=== PATIENT | female | born 1950 | race Caucasian/White ===

== ENCOUNTER 2020-06-30 11:50 | Inpatient (IN) ==
[2020-06-30] MEDS ORDERED: CEFEPIME 2,000 MG/20 ML VIAL IV STA (12:06)
--- NOTE | 2020-06-30 12:13 | Emergency Department Note ---
Impression & Plan Change in mental status, Ascites, Hyperammonemia, Acute liver failure, Acute dehydration, COVID-19 ED Provider Note NAME: HENOK DENNIS AGE: 69 SEX: F : 1950 ARRIVES VIA: Ambulance INFORMANT: [ems, nursing] ED PROVIDER(S): [Nicolas Seaman MD] CHIEF COMPLAINT: Respiratory difficulty HISTORY OF PRESENT ILLNESS: The patient is a 69-year-old female who is reportedly Covid positive as of a few days ago. She is from [facility]. The patient today had a difficult time with her breathing and a change in mental status and appeared yellow in color. She seemed to have a sudden decline and was sent to the hospital via EMS. No further history is obtainable as the patient is currently nonverbal. She is breathing deeply and rapidly. REVIEW OF SYSTEMS: Unobtainable given her mental state. PMHx/PSHx: See Below SOCIAL HISTORY: See Below. PHYSICAL EXAM: GENERAL: Patient is moderate respiratory distress HEENT: No acute trauma, normocephalic atraumatic, mucous membranes moist, no nasal congestion, pupils equal and reactive to light. NECK: No stridor, no adenopathy, no meningismus, trachea is midline. LUNGS: No wheezing or rhonchi, increased respiratory rate. There appears to be some mild to moderate respiratory distress. HEART: Without murmurs gallops or rubs, mildly tachycardic, regular rhythm. ABDOMEN: Soft, nontender, bowel sounds positive, no hernias, no peritonitis. EXTREMITIES: No cyanosis, mild bilateral pedal edema, full range of motion of all the joints without pain or difficulty, no signs for acute trauma. NEUROLOGIC: Moves all extremities, currently nonverbal, does not respond to voice command. Does withdraw and wince to pain. SKIN: No rash, mild jaundice, no diaphoresis. DIFFERENTIAL DIAGNOSIS: Sepsis, UTI, pneumonia, metabolic, electrolyte abnormalities, liver failure, intracranial bleeding, coronavirus, cardiac sources, intracerebral event, toxicologic, neurologic, as well as other pathologies. EMERGENCY DEPARTMENT COURSE/PROCEDURES: ECG: Indication was shortness of breath. The ECG shows a normal sinus rhythm with a rate of 100. There is no ST elevation, there is some diffuse nonspecific ST change. There are no PVCs. The QTc is 466. Continuous Cardiac Monitoring: An order was placed for continuous cardiac monitoring. The monitor shows a rate of 93 with normal sinus rhythm. Critical Care Note: I have personally spent 56 minutes of critical care time in the direct management of this patient. This includes bedside care, interpretation of diagnostic studies, and testing, discussion with consultants, patient, and family members, and other required patient management activities. This 56 minutes is in excess of all separately billable procedures. MEDICAL DECISION MAKING: There is a moderate leukocytosis at 15,000, this could be consistent with infection or possibly, the stress of her presentation. There is no anemia. There is a normal platelet count. INR is elevated at 1.5. There is evidence for some acute kidney injury with a creatinine of 1.24. Lactic acid level is quite elevated at 4.4, consistent with infection and/or dehydration. There is evidence for liver failure. She has some chronic liver enzyme elevations but today, the ammonia level is quite high at 355. Procalcitonin level is slightly elevated. BNP is not elevated. Chest film shows bilateral pulmonary infiltrates versus some CHF. ECG shows a sinus rhythm, no acute ischemia. Cardiac enzyme testing x1 is not consistent with acute cardiac injury. Urinalysis is consistent with possible infection. Brain CT shows no acute bleed or mass-effect. Abdominal CT scan shows significant ascites. On exam, the patient was breathing deeply and rapidly. She appeared to be in some distress. She was nonverbal but seemed to respond to pain. The patient has a positive coronavirus test. Her x-ray is consistent with findings of coronavirus. She also appears to be in acute liver failure. I think the liver failure has caused the sudden confusion and decline. She also appears to be quite dehydrated. The patient was placed on Vapotherm to help her respiratory issue. I did want to avoid intubation as she was not hypoxic. Despite her elevated lactic acid, I only ordered for 1.5 L of IV fluid as excessive fluid amounts are contraindicated in coronavirus infection. Patient was given IV cefepime as empiric antibiotic coverage. She was placed on 2 inches of nitroglycerin paste. I did consult the ICU. They suggested a diagnostic and therapeutic paracentesis. I spoke to radiology and this will be performed at the bedside. Albumin will be given IV before and after the paracentesis. The patient does seem to be somewhat improved with regard to her respiratory status since the Vapotherm application. The patient's ABG does show evidence for a respiratory alkalosis. The PCO2 is 24 and the pH was 7.53. The patient is quite ill. She has Covid. She appears to have a chest film consistent with a Covid pneumonitis. She now is in liver failure with a markedly elevated ammonia level. She is quite dehydrated and has some acute kidney injury. She has ascites and possibly a UTI. The patient will be hospitalized. I did speak with case management and the on- call hospitalist. Of note, the patient presented here as a full code. After the hospitalist talked with the patient's son, she is now a DNR, DNI. Past Med/Surg History Medical History Acute hypoxemic respiratory failure Anxiety Ascites CAD (coronary artery disease) NON-OBSTRUCTIVE COVID-19 Depression Diabetes mellitus, type 2 IDDM GERD (gastroesophageal reflux disease) CONTROLLED Hydronephrosis, right Hyperlipidemia Hypertension Mild aortic stenosis DAMARI 1.62CM2, MG 17MMHG PER 2017 ECHO Obesity Pleural effusion associated with hepatic disorder Urinary incontinence Surgical History Fusion of spine LUMBAR History of cardiac cath 2014= NO STENTS History of cholecystectomy History of colonoscopy History of cystoscopy History of hysterectomy History of total knee replacement RIGHT/LEFT Social History Smoking Status: Unknown if ever smoked Cigarettes Per Day: QUIT 6 YEARS AGO, HX OF SOCIAL USE; Second Hand Exposure: No; Hx Alcohol Use: No Hx Substance Use: No Preferred Language: Irish Communication Ability: unresponsi Javascript Web Developer Required: No Beliefs That Will Affect Care: None Current Living Situation: [facility] Other Information That Helps Us Care for You: No Feels Safe at Home: Yes Assistive Devices: None Allergies Allergies Allergy/AdvReac Type Severity Reaction Status Date / Time cefuroxime Allergy Unknown Verified 06/30/20 18:10 amoxicillin [From Augmentin] AdvReac Vomiting Verified 06/30/20 12:59 clavulanic acid AdvReac Vomiting Verified 06/30/20 12:59 [From Augmentin] Home Meds Home Medications Medication Instructions Recorded Confirmed Jardiance 10 mg PO QAM 01/09/19 06/30/20 omeprazole 20 mg PO DAILYBB 01/09/19 06/30/20 sertraline 100 mg PO QAM 01/09/19 06/30/20 Saccharomyces boulardii [Florastor] 250 mg PO QAM 06/19/20 06/30/20 bupropion HCl 200 mg PO QAM 06/19/20 06/30/20 calcium carbonate-vitamin D3 1 tab PO QAM 06/19/20 06/30/20 ferrous sulfate 325 mg PO BID 06/19/20 06/30/20 lactulose 20 g PO QAM 06/19/20 06/30/20 magnesium oxide [MagOx] 400 mg PO BID 06/19/20 06/30/20 ondansetron HCl [Zofran] 4 mg PO Q6H PRN 06/19/20 06/30/20 pantoprazole [Protonix] 40 mg PO DAILYBB 06/19/20 06/30/20 spironolactone 25 mg PO BID 06/19/20 06/30/20 therapeutic multivitamin 1 tab PO QAM 06/19/20 06/30/20 [Thera-Tabs] Results & Data (ED) Vital Signs Vital Signs - 24 hr 06/30/20 11:39 06/30/20 11:52 06/30/20 11:54 Temperature 36.9 C Temperature Source Oral Pulse Rate 97 H Pulse Rate [Right Apical] Pulse Rate from SpO2 Sensor 94 H Respiratory Rate 30 H 24 Respiratory Effort / Characteristics Grunting Short of Breath Respiratory Depth Normal Respiratory Pattern Rapid/Shallow Tachypnea Blood Pressure 155/82 H 155/82 H Blood Pressure Mean 106 110 Blood Pressure Position Sitting Pulse Oximetry 92 91 Oxygen Delivery Method Nasal Cannula Oxygen Flow Rate 6 Fraction of Inspired Oxygen Sepsis Recent Fever Within 48 Hours No Sepsis New/Unexplained Change in Mental Status Yes Sepsis Action Taken by Nursing Previously Notified 06/30/20 12:00 06/30/20 12:01 06/30/20 12:11 Temperature Temperature Source Pulse Rate 93 H 92 H 98 H Pulse Rate [Right Apical] Pulse Rate from SpO2 Sensor 93 H 97 H Respiratory Rate 24 26 H 30 H Respiratory Effort / Characteristics Respiratory Depth Respiratory Pattern Blood Pressure 145/85 H Blood Pressure Mean 104 Blood Pressure Position Pulse Oximetry 92 92 92 Oxygen Delivery Method Nasal Cannula Oxygen Flow Rate 6 Fraction of Inspired Oxygen Sepsis Recent Fever Within 48 Hours Sepsis New/Unexplained Change in Mental Status Sepsis Action Taken by Nursing 06/30/20 12:15 06/30/20 12:16 06/30/20 12:27 Temperature Temperature Source Pulse Rate 100 H 94 H Pulse Rate [Right Apical] Pulse Rate from SpO2 Sensor 100 H 94 H Respiratory Rate 25 H 24 Respiratory Effort / Characteristics Respiratory Depth Respiratory Pattern Blood Pressure 141/85 H Blood Pressure Mean 99 Blood Pressure Position Pulse Oximetry 91 91 97 Oxygen Delivery Method High Flow Nasal Cannula Oxygen Flow Rate 35 Fraction of Inspired Oxygen 70 Sepsis Recent Fever Within 48 Hours Sepsis New/Unexplained Change in Mental Status Sepsis Action Taken by Nursing 06/30/20 12:28 06/30/20 12:30 06/30/20 12:31 Temperature Temperature Source Pulse Rate 101 H 100 H Pulse Rate [Right Apical] Pulse Rate from SpO2 Sensor 101 H 101 H Respiratory Rate 32 H 25 H 25 H Respiratory Effort / Characteristics Labored Short of Breath Respiratory Depth Respiratory Pattern Blood Pressure 140/84 Blood Pressure Mean 99 Blood Pressure Position Pulse Oximetry 94 95 Oxygen Delivery Method High Flow Nasal Cannula Oxygen Flow Rate 35 Fraction of Inspired Oxygen Sepsis Recent Fever Within 48 Hours Sepsis New/Unexplained Change in Mental Status Sepsis Action Taken by Nursing 06/30/20 12:45 06/30/20 12:46 06/30/20 12:51 Temperature Temperature Source Pulse Rate 94 H 104 H Pulse Rate [Right Apical] 112 H Pulse Rate from SpO2 Sensor 94 H 103 H Respiratory Rate 27 H 24 28 H Respiratory Effort / Characteristics Accessory Muscle Use Short of Breath Respiratory Depth Respiratory Pattern Blood Pressure 147/55 H Blood Pressure Mean 94 Blood Pressure Position Pulse Oximetry 95 95 96 Oxygen Delivery Method High Flow Nasal Cannula Oxygen Flow Rate 35 Fraction of Inspired Oxygen 70 Sepsis Recent Fever Within 48 Hours Sepsis New/Unexplained Change in Mental Status Sepsis Action Taken by Nursing 06/30/20 13:30 06/30/20 13:31 06/30/20 13:45 Temperature Temperature Source Pulse Rate 96 H 96 H 93 H Pulse Rate [Right Apical] Pulse Rate from SpO2 Sensor 96 H 96 H 93 H Respiratory Rate 25 H 24 24 Respiratory Effort / Characteristics Respiratory Depth Respiratory Pattern Blood Pressure 149/72 H 133/90 Blood Pressure Mean 108 97 Blood Pressure Position Pulse Oximetry 96 96 96 Oxygen Delivery Method High Flow Nasal Cannula Oxygen Flow Rate 35 Fraction of Inspired Oxygen 70 Sepsis Recent Fever Within 48 Hours Sepsis New/Unexplained Change in Mental Status Sepsis Action Taken by Nursing 06/30/20 13:46 06/30/20 14:00 06/30/20 14:01 Temperature Temperature Source Pulse Rate 93 H 95 H 95 H Pulse Rate [Right Apical] Pulse Rate from SpO2 Sensor 93 H 95 H 95 H Respiratory Rate 25 H 25 H 24 Respiratory Effort / Characteristics Respiratory Depth Respiratory Pattern Blood Pressure 128/93 Blood Pressure Mean 100 Blood Pressure Position Pulse Oximetry 95 96 95 Oxygen Delivery Method Oxygen Flow Rate Fraction of Inspired Oxygen Sepsis Recent Fever Within 48 Hours Sepsis New/Unexplained Change in Mental Status Sepsis Action Taken by Nursing 06/30/20 14:15 Temperature Temperature Source Pulse Rate 93 H Pulse Rate [Right Apical] Pulse Rate from SpO2 Sensor 93 H Respiratory Rate 25 H Respiratory Effort / Characteristics Respiratory Depth Respiratory Pattern Blood Pressure 118/85 Blood Pressure Mean 99 Blood Pressure Position Pulse Oximetry 95 Oxygen Delivery Method Oxygen Flow Rate Fraction of Inspired Oxygen Sepsis Recent Fever Within 48 Hours Sepsis New/Unexplained Change in Mental Status Sepsis Action Taken by [facility] Medications Current Medication List: was personally reviewed by me Laboratory Data Attestation: I reviewed the patient's lab results. Result diagrams: 07/01/20 02:45 07/01/20 02:45 Lab Results 06/30/20 06/30/20 06/30/20 Range/Units 12:18 12:18 12:18 WBC 15.35 H (4.8-10.8) K/uL RBC 4.35 (4.2-5.4) M/uL Hgb 13.7 (12.0-16.0) g/dL Hct 41.9 (37-47) % MCV 96.3 (80-100) fL MCH 31.5 (25-34) pg MCHC 32.7 (32-36) g/dL RDW Std Deviation 80.3 H (36.4-46.3) fL RDW Coeff of Hilaria 22.8 H (11.5-14.5) % Plt Count 170 (130-400) K/uL MPV 9.4 (7.4-10.4) fL Immature Gran % (Auto) 0.5 % Neut % (Auto) 86.3 % Lymph % (Auto) 4.3 % [place] % (Auto) 8.8 % Eos % (Auto) 0.0 % Baso % (Auto) 0.1 % Neut # (Auto) 13.24 H (1.4-6.5) K/uL Lymph # (Auto) 0.66 L (1.2-3.4) K/uL [place] # (Auto) 1.35 H (0.11-0.59) K/uL Eos # (Auto) 0.00 (0-0.5) K/uL Baso # (Auto) 0.02 (0-0.2) K/uL Immature Gran # (Auto) 0.08 H (0.00-0.02) K/uL Anisocytosis Present Echinocytes 1+ PT 15.9 H (9.0-12.0) Seconds INR 1.5 H (0.9-1.1) APTT 36.2 H (21.0-31.0) Seconds PTT Ratio 1.3 Specimen Type POC pH (7.35-7.45) POC pCO2 (35-46) mmHg POC pO2 (80-95) mmHg POC HCO3 (19-24) lacey/L POC Total CO2 (24-31) mmol/L POC Base Excess (-9-1.8) lacey/L POC ABG O2 Sat (90-95) % Sodium 134 L (136-145) mmol/L Potassium 5.0 (3.5-5.1) mmol/L Chloride 104 (98-107) mmol/L Carbon Dioxide 20 L (21-32) mmol/L Anion Gap 10.0 (3-11) BUN 42 H (7-18) mg/dl Creatinine 1.24 H (0.6-1.2) mg/dl Est Cr Clr Drug Dosing 43.7 ml/min Est GFR ( Amer) 51.3 Est GFR (Non-Af Amer) 44.3 BUN/Creatinine Ratio 33.8 H (10-20) Glucose 88 (70-99) mg/dl Lactate (0.4-2.0) mmol/L Calcium 9.1 (8.5-10.1) mg/dl Magnesium 2.5 H (1.8-2.4) mg/dl Ferritin (8-388) ng/ml Total Bilirubin 4.4 H (0.2-1) mg/dl AST 73 H (15-37) U/L ALT 38 (12-78) U/L Alkaline Phosphatase 260 H (45-117) U/L Ammonia (11-32) umol/L Troponin I < 0.015 (0-0.045) ng/ml NT-Pro-B Natriuret Pep (0-900) pg/ml Total Protein 6.7 (6.4-8.2) gm/dl Albumin 1.8 L (3.4-5.0) gm/dl Globulin 4.9 H (2.5-4.0) gm/dl Albumin/Globulin Ratio 0.4 L (0.9-2) Procalcitonin (0-0.5) ng/ml Specimen Hemolysis Cancelled Urine Color Urine Appearance (Clear) Urine pH (4.5-7.5) Ur Specific [place] (1.000-1.030) Urine Protein (Negative) Urine Glucose (UA) (Negative) Urine Ketones (Negative) Urine Blood (Negative) Urine Nitrite (Negative) Urine Bilirubin (Negative) Urine Urobilinogen (Negative) Ur Leukocyte Esterase (Negative) Urine RBC (0-4) /hpf Urine WBC (0-5) /hpf Ur Epithelial Cells (0-5) /lpf Urine Bacteria (Negative) Hyaline Casts (0-5) /lpf Urine Mucus (None Prsent) 06/30/20 06/30/20 06/30/20 Range/Units 12:18 12:18 12:18 WBC (4.8-10.8) K/uL RBC (4.2-5.4) M/uL Hgb (12.0-16.0) g/dL Hct (37-47) % MCV (80-100) fL MCH (25-34) pg MCHC (32-36) g/dL RDW Std Deviation (36.4-46.3) fL RDW Coeff of Hilaria (11.5-14.5) % Plt Count (130-400) K/uL MPV (7.4-10.4) fL Immature Gran % (Auto) % Neut % (Auto) % Lymph % (Auto) % [place] % (Auto) % Eos % (Auto) % Baso % (Auto) % Neut # (Auto) (1.4-6.5) K/uL Lymph # (Auto) (1.2-3.4) K/uL [place] # (Auto) (0.11-0.59) K/uL Eos # (Auto) (0-0.5) K/uL Baso # (Auto) (0-0.2) K/uL Immature Gran # (Auto) (0.00-0.02) K/uL Anisocytosis Echinocytes PT (9.0-12.0) Seconds INR (0.9-1.1) APTT (21.0-31.0) Seconds PTT Ratio Specimen Type POC pH (7.35-7.45) POC pCO2 (35-46) mmHg POC pO2 (80-95) mmHg POC HCO3 (19-24) lacey/L POC Total CO2 (24-31) mmol/L POC Base Excess (-9-1.8) lacey/L POC ABG O2 Sat (90-95) % Sodium (136-145) mmol/L Potassium (3.5-5.1) mmol/L Chloride (98-107) mmol/L Carbon Dioxide (21-32) mmol/L Anion Gap (3-11) BUN (7-18) mg/dl Creatinine (0.6-1.2) mg/dl Est Cr Clr Drug Dosing ml/min Est GFR ( Amer) Est GFR (Non-Af Amer) BUN/Creatinine Ratio (10-20) Glucose (70-99) mg/dl Lactate 4.4 H* (0.4-2.0) mmol/L Calcium (8.5-10.1) mg/dl Magnesium (1.8-2.4) mg/dl Ferritin (8-388) ng/ml Total Bilirubin (0.2-1) mg/dl AST (15-37) U/L ALT (12-78) U/L Alkaline Phosphatase (45-117) U/L Ammonia 355.1 H (11-32) umol/L Troponin I (0-0.045) ng/ml NT-Pro-B Natriuret Pep (0-900) pg/ml Total Protein (6.4-8.2) gm/dl Albumin (3.4-5.0) gm/dl Globulin (2.5-4.0) gm/dl Albumin/Globulin Ratio (0.9-2) Procalcitonin 0.95 H (0-0.5) ng/ml Specimen Hemolysis Urine Color Urine Appearance (Clear) Urine pH (4.5-7.5) Ur Specific [place] (1.000-1.030) Urine Protein (Negative) Urine Glucose (UA) (Negative) Urine Ketones (Negative) Urine Blood (Negative) Urine Nitrite (Negative) Urine Bilirubin (Negative) Urine Urobilinogen (Negative) Ur Leukocyte Esterase (Negative) Urine RBC (0-4) /hpf Urine WBC (0-5) /hpf Ur Epithelial Cells (0-5) /lpf Urine Bacteria (Negative) Hyaline Casts (0-5) /lpf Urine Mucus (None Prsent) 06/30/20 06/30/20 06/30/20 Range/Units 12:18 12:18 13:30 WBC (4.8-10.8) K/uL RBC (4.2-5.4) M/uL Hgb (12.0-16.0) g/dL Hct (37-47) % MCV (80-100) fL MCH (25-34) pg MCHC (32-36) g/dL RDW Std Deviation (36.4-46.3) fL RDW Coeff of Hilaria (11.5-14.5) % Plt Count (130-400) K/uL MPV (7.4-10.4) fL Immature Gran % (Auto) % Neut % (Auto) % Lymph % (Auto) % [place] % (Auto) % Eos % (Auto) % Baso % (Auto) % Neut # (Auto) (1.4-6.5) K/uL Lymph # (Auto) (1.2-3.4) K/uL [place] # (Auto) (0.11-0.59) K/uL Eos # (Auto) (0-0.5) K/uL Baso # (Auto) (0-0.2) K/uL Immature Gran # (Auto) (0.00-0.02) K/uL Anisocytosis Echinocytes PT (9.0-12.0) Seconds INR (0.9-1.1) APTT (21.0-31.0) Seconds PTT Ratio Specimen Type POC pH (7.35-7.45) POC pCO2 (35-46) mmHg POC pO2 (80-95) mmHg POC HCO3 (19-24) lacey/L POC Total CO2 (24-31) mmol/L POC Base Excess (-9-1.8) lacey/L POC ABG O2 Sat (90-95) % Sodium (136-145) mmol/L Potassium (3.5-5.1) mmol/L Chloride (98-107) mmol/L Carbon Dioxide (21-32) mmol/L Anion Gap (3-11) BUN (7-18) mg/dl Creatinine (0.6-1.2) mg/dl Est Cr Clr Drug Dosing ml/min Est GFR ( Amer) Est GFR (Non-Af Amer) BUN/Creatinine Ratio (10-20) Glucose (70-99) mg/dl Lactate (0.4-2.0) mmol/L Calcium (8.5-10.1) mg/dl Magnesium (1.8-2.4) mg/dl Ferritin 289.7 (8-388) ng/ml Total Bilirubin (0.2-1) mg/dl AST (15-37) U/L ALT (12-78) U/L Alkaline Phosphatase (45-117) U/L Ammonia (11-32) umol/L Troponin I (0-0.045) ng/ml NT-Pro-B Natriuret Pep 736 (0-900) pg/ml Total Protein (6.4-8.2) gm/dl Albumin (3.4-5.0) gm/dl Globulin (2.5-4.0) gm/dl Albumin/Globulin Ratio (0.9-2) Procalcitonin (0-0.5) ng/ml Specimen Hemolysis Urine Color [place] Urine Appearance Slightly Cloudy (Clear) Urine pH 5.5 (4.5-7.5) Ur Specific [place] 1.025 (1.000-1.030) Urine Protein 2+ H (Negative) Urine Glucose (UA) Trace H (Negative) Urine Ketones 1+ H (Negative) Urine Blood 3+ H (Negative) Urine Nitrite Positive A (Negative) Urine Bilirubin Negative (Negative) Urine Urobilinogen Positive H (Negative) Ur Leukocyte Esterase 2+ H (Negative) Urine RBC 10-30 H (0-4) /hpf Urine WBC >30 H (0-5) /hpf Ur Epithelial Cells >30 H (0-5) /lpf Urine Bacteria 2+ H (Negative) Hyaline Casts 0-5 (0-5) /lpf Urine Mucus Present A (None Prsent) 06/30/20 Range/Units 13:57 WBC (4.8-10.8) K/uL RBC (4.2-5.4) M/uL Hgb (12.0-16.0) g/dL Hct (37-47) % MCV (80-100) fL MCH (25-34) pg MCHC (32-36) g/dL RDW Std Deviation (36.4-46.3) fL RDW Coeff of Hilaria (11.5-14.5) % Plt Count (130-400) K/uL MPV (7.4-10.4) fL Immature Gran % (Auto) % Neut % (Auto) % Lymph % (Auto) % [place] % (Auto) % Eos % (Auto) % Baso % (Auto) % Neut # (Auto) (1.4-6.5) K/uL Lymph # (Auto) (1.2-3.4) K/uL [place] # (Auto) (0.11-0.59) K/uL Eos # (Auto) (0-0.5) K/uL Baso # (Auto) (0-0.2) K/uL Immature Gran # (Auto) (0.00-0.02) K/uL Anisocytosis Echinocytes PT (9.0-12.0) Seconds INR (0.9-1.1) APTT (21.0-31.0) Seconds PTT Ratio Specimen Type Arterial POC pH 7.53 H* (7.35-7.45) POC pCO2 24 L (35-46) mmHg POC pO2 86 (80-95) mmHg POC HCO3 20 (19-24) lacey/L POC Total CO2 21 L (24-31) mmol/L POC Base Excess -2.0 (-9-1.8) lacey/L POC ABG O2 Sat 98.0 H (90-95) % Sodium (136-145) mmol/L Potassium (3.5-5.1) mmol/L Chloride (98-107) mmol/L Carbon Dioxide (21-32) mmol/L Anion Gap (3-11) BUN (7-18) mg/dl Creatinine (0.6-1.2) mg/dl Est Cr Clr Drug Dosing ml/min Est GFR ( Amer) Est GFR (Non-Af Amer) BUN/Creatinine Ratio (10-20) Glucose (70-99) mg/dl Lactate (0.4-2.0) mmol/L Calcium (8.5-10.1) mg/dl Magnesium (1.8-2.4) mg/dl Ferritin (8-388) ng/ml Total Bilirubin (0.2-1) mg/dl AST (15-37) U/L ALT (12-78) U/L Alkaline Phosphatase (45-117) U/L Ammonia (11-32) umol/L Troponin I (0-0.045) ng/ml NT-Pro-B Natriuret Pep (0-900) pg/ml Total Protein (6.4-8.2) gm/dl Albumin (3.4-5.0) gm/dl Globulin (2.5-4.0) gm/dl Albumin/Globulin Ratio (0.9-2) Procalcitonin (0-0.5) ng/ml Specimen Hemolysis Urine Color Urine Appearance (Clear) Urine pH (4.5-7.5) Ur Specific [place] (1.000-1.030) Urine Protein (Negative) Urine Glucose (UA) (Negative) Urine Ketones (Negative) Urine Blood (Negative) Urine Nitrite (Negative) Urine Bilirubin (Negative) Urine Urobilinogen (Negative) Ur Leukocyte Esterase (Negative) Urine RBC (0-4) /hpf Urine WBC (0-5) /hpf Ur Epithelial Cells (0-5) /lpf Urine Bacteria (Negative) Hyaline Casts (0-5) /lpf Urine Mucus (None Prsent) Administered Medications Lactulose 200 gm/ Sterile Water 700 ml/ BARCODE IDENTIFIER 1 ea 0 gm OH Q8H NICOL Stop: 07/30/20 15:59 Last Admin: 07/01/20 01:56 Dose: 200 gm Documented by: [id number] Admin: 06/30/20 18:48 Dose: 200 gm Documented by: [id number] Dextrose (Dextrose 50% 50 Ml Syringe) 25 - 50 ml IV UD PRN; Protocol PRN Reason: Hypoglycemia Protocol Stop: 07/30/20 14:38 Last Admin: 07/01/20 02:33 Dose: 25 ml Documented by: [id number] Metronidazole (Flagyl) 500 mg in 100 mls @ 100 mls/hr IV Q12H NICOL; Protocol Stop: 07/10/20 15:59 Last Infusion: 07/01/20 05:11 Dose: 0 mls/hr Documented by: [id number] Admin: 07/01/20 03:51 Dose: 100 mls/hr Documented by: [id number] Infusion: 06/30/20 18:07 Dose: 0 mls/hr Documented by: [id number] Admin: 06/30/20 16:15 Dose: 100 mls/hr Documented by: [id number] Thiamine HCl 100 mg/ Syringe 10 mls @ 2 mls/min IV Q24H NICOL Stop: 07/30/20 19:59 Last Admin: 06/30/20 21:10 Dose: 2 mls/min Documented by: [id number] Pantoprazole Sodium 40 mg/ (Syringe) 10 mls @ 5 mls/min IV BID@0800,2000 NICOL Stop: 07/30/20 19:59 Last Admin: 06/30/20 21:11 Dose: 5 mls/min Documented by: [id number] Dexamethasone Sodium Phosphate (6 mg/ Syringe) 1.5 mls @ 1 mls/min IV Q24H NICOL Stop: 07/30/20 17:59 Last Admin: 06/30/20 22:28 Dose: 1 mls/min Documented by: [id number] Octreotide Acetate 500 mcg/ (Sodium Chloride) 105 mls @ 10.5 mls/hr IV .Q10H NICOL Stop: 07/30/20 18:44 Last Admin: 07/01/20 03:50 Dose: 50 mcg/hr, 10.5 mls/hr Documented by: [id number] Infusion: 07/01/20 03:50 Dose: 50 mcg/hr, 10.5 mls/hr Documented by: [id number] Admin: 06/30/20 19:33 Dose: 50 mcg/hr, 10.5 mls/hr Documented by: [id number] Dextrose (D5w) 1,000 mls @ 80 mls/hr IV .[id number] NICOL Stop: 07/30/20 18:44 Last Admin: 06/30/20 19:34 Dose: 80 mls/hr Documented by: [id number] Norepinephrine Bitartrate 8 mg (/ Dextrose) 508 mls @ 14.135 mls/hr IV .Q24H NICOL; Protocol Stop: 07/31/20 05:44 Last Admin: 07/01/20 06:39 Dose: 0.05 mcg/kg/min, 14.1 mls/hr Documented by: [id number] Cosigned by: [id number] Insulin Aspart (Insulin Aspart 100 Units/Ml 3 Ml Pen) 0 units SC Q6 NICOL Stop: 07/30/20 17:59 Last Admin: 07/01/20 01:15 Dose: Not Given Documented by: [id number] Cosigned by: [id number] Admin: 06/30/20 18:00 Dose: Not Given Documented by: [id number] Cosigned by: [id number] Discontinued Medications Enoxaparin Sodium (Enoxaparin Inj 40 Mg/0.4 Ml Syr) 40 mg SQ Q24H NICOL Stop: 07/30/20 17:59 Last Admin: 06/30/20 21:10 Dose: Not Given Documented by: [id number] Cefepime HCl (Maxipime) 2,000 mg in 20 mls @ 5 mls/min IV NOW STA; Protocol Stop: 06/30/20 12:09 Last Admin: 06/30/20 12:40 Dose: 5 mls/min Documented by: [id number] Sodium Chloride (Nss 1000ml) 500 mls @ 999 mls/hr IV .Q31M ONE Stop: 06/30/20 12:47 Last Infusion: 06/30/20 13:12 Dose: 0 mls/hr Documented by: [id number] Admin: 06/30/20 12:40 Dose: 999 mls/hr Documented by: [id number] Sodium Chloride (Nss 1000ml) 1,000 mls @ 999 mls/hr IV .Q1H1M ONE Stop: 06/30/20 14:01 Last Infusion: 06/30/20 14:50 Dose: 0 mls/hr Documented by: [id number] Admin: 06/30/20 13:15 Dose: 999 mls/hr Documented by: [id number] Albumin Human (Albumin 25%) 50 mls @ 50 mls/hr IV Q1H [facility]IC[facility] Stop: 06/30/20 17:44 Last Infusion: 07/01/20 00:49 Dose: 0 mls/hr Documented by: [id number] Admin: 06/30/20 18:43 Dose: 50 mls/hr Documented by: [id number] Infusion: 06/30/20 18:07 Dose: 0 mls/hr Documented by: [id number] Admin: 06/30/20 15:49 Dose: 50 mls/hr Documented by: [id number] Infusion: 06/30/20 15:49 Dose: 50 mls/hr Documented by: [id number] Admin: 06/30/20 15:35 Dose: 50 mls/hr Documented by: [id number] Infusion: 06/30/20 15:35 Dose: 50 mls/hr Documented by: [id number] Admin: 06/30/20 14:35 Dose: 50 mls/hr Documented by: [id number] Vancomycin HCl 1,500 mg/ (Sodium Chloride) 530 mls @ 200 mls/hr IV TODAY@1530 NICOL Stop: 06/30/20 18:08 Last Infusion: 07/01/20 00:49 Dose: 0 mls/hr Documented by: [id number] Admin: 06/30/20 18:07 Dose: 200 mls/hr Documented by: [id number] Albumin Human (Albumin 25%) 50 mls @ 50 mls/hr IV Q1H [facility] Stop: 06/30/20 23:44 Last Infusion: 07/01/20 02:11 Dose: 0 mls/hr Documented by: [id number] Admin: 07/01/20 01:15 Dose: 50 mls/hr Documented by: [id number] Infusion: 07/01/20 01:14 Dose: 0 mls/hr Documented by: [id number] Admin: 07/01/20 00:20 Dose: 50 mls/hr Documented by: [id number] Infusion: 07/01/20 00:20 Dose: 0 mls/hr Documented by: [id number] Admin: 06/30/20 22:30 Dose: 50 mls/hr Documented by: [id number] Infusion: 06/30/20 22:30 Dose: 50 mls/hr Documented by: [id number] Admin: 06/30/20 21:32 Dose: 50 mls/hr Documented by: [id number] Infusion: 06/30/20 21:32 Dose: 50 mls/hr Documented by: [id number] Admin: 06/30/20 20:36 Dose: 50 mls/hr Documented by: [id number] Infusion: 06/30/20 20:36 Dose: 0 mls/hr Documented by: [id number] Admin: 06/30/20 19:34 Dose: 50 mls/hr Documented by: [id number] Nitroglycerin (Nitroglycerin 2% Ointment 30gm Tube) Confirm Administered Dose 18 inch .ROUTE .[facility] Stop: 06/30/20 12:35 Last Admin: 06/30/20 13:02 Dose: Not Given Documented by: [id number] Nitroglycerin (Nitroglycerin 2% Ointment 30gm Tube) 2 inch EXT NOW STA Stop: 06/30/20 12:54 Last Admin: 06/30/20 12:55 Dose: 2 inch Documented by: [id number] Imaging Data Radiologist's Impression: XR chest 1V portable CLINICAL HISTORY: SEPSIS COMPARISON STUDY: 01/15/2019 FINDINGS: The heart is normal in size. There is aortic tortuosity/ectasia. Since the prior study, the patient developed extensive bilateral interstitial pulmonary opacities. This could represent a bilateral interstitial infectious/inflammatory process, or pulmonary edema. There are no significant pleural effusions. There is no pneumothorax.[ IMPRESSION: Interval development of extensive bilateral interstitial pulmonary opacities, pulmonary edema versus an interstitial infectious/inflammatory process. Clinical and radiographic follow-up recommended. CT SCAN OF THE ABDOMEN AND PELVIS WITHOUT CONTRAST CLINICAL HISTORY: liver failure COMPARISON STUDY: 01/02/2018 TECHNIQUE: CT scan of the abdomen and pelvis was performed from the lung bases to the proximal femurs. Images are reviewed in the axial, sagittal, and coronal planes. IV contrast was not administered for this examination. A dose lowering technique was utilized adhering to the principles of ALARA. CT DOSE: 1230.77 mGycm FINDINGS: Lower chest: There is a moderate left pleural effusion. There are diffuse bilateral interstitial pulmonary opacities. There is increased soft tissue at the level the right hilum and adenopathy cannot be excluded. There are old right-sided rib fractures. Liver: The liver has a cirrhotic morphology. No focal masses are visualized in this noncontrast study Gallbladder: Surgically absent Spleen: Normal in size and attenuation. Pancreas: Unremarkable. Adrenal glands: There is low-density nodular thickening of the left adrenal gland. Kidneys: There is mild fullness the right renal collecting system. No renal, ure teral, or bladder calculi are visualized. Bowel: There are no transition zones to indicate bowel obstruction. There is colonic diverticulosis. No acute peridiverticular inflammatory changes are visua lized. There is diffuse colonic wall thickening, finding which may be secondary to hepatocellular disease. There is mild gastric wall thickening Peritoneum: There is a large volume of ascites. There is no free intraperitoneal air. Vasculature: The abdominal aorta is normal in course and caliber. Adenopathy: None. Pelvic viscera: The uterus appears surgically absent. There is an indwelling Enrique catheter. Skeletal structures: There is an old internally fixated intertrochanteric left hip fracture. There is an old L1 compression fracture status post vertebroplasty. There is evidence for anasarca. IMPRESSION: 1. Cirrhotic morphology of the liver. 2. Large volume of ascites 3. No evidence of bowel obstruction. No evidence of free air 4. Diffuse colonic wall thickening possibly secondary to hepatocellular disease 5. Diffuse bilateral interstitial pulmonary opacities 6. Moderate left pleural effusion 7. Right hilar prominence. Adenopathy cannot be excluded. CT head/brain wo con CLINICAL HISTORY: confusion COMPARISON STUDY: No previous studies for comparison. TECHNIQUE: Axial CT of the brain is performed from the vertex to the skull base. IV contrast was not administered for this examination. A dose lowering technique was utilized adhering to the principles of ALARA. CT DOSE: 729.78 mGycm FINDINGS: No intra or extra-axial mass lesions are visualized. There is no CT evidence of acute cortical infarction. There is no evidence of midline shift. There is no acute hemorrhage. No calvarial fractures are visualized. There are patchy white matter hypodensities likely on a small vessel basis. There is no evidence of pathologic ventricular dilatation. There is no evidence of acute sinusitis IMPRESSION: 1. No evidence of acute hemorrhage 2. Scattered white matter hypodensities, a finding which while nonspecific is statistically secondary to small vessel ischemic disease. Discharge Plan Visit Data Chief Complaint: Unresponsive Stated Complaint: COVID+ Semi-responsive ED Provider: Nicolas Seaman Discharge Problem: Change in mental status, Ascites, Hyperammonemia, Acute liver failure, Acute dehydration, COVID-19 Patient Disposition: Admitted As Inpatient Condition: Serious Discharge Instructions Interventions: ED Discharge Assessment Last Done: 06/30/20 16:02 Discharge Problem: Change in mental status Qualifiers: Altered mental status type: stupor Qualified Code(s): R40.1 - Stupor Ascites Qualifiers: Ascites type: other type Qualified Code(s): R18.8 - Other ascites Acute liver failure Qualifiers: Hepatic coma status: with hepatic coma Qualified Code(s): K72.01 - Acute and subacute hepatic failure with coma
[2020-06-30] MEDS ORDERED: SODIUM CHLORIDE 0.9% 1000ML 500 ML IV ONE (12:17)
[2020-06-30 12:30] LABS: Basophils # (auto) 0.02 K/uL (0-0.2); Basophils % (auto) 0.1 %; Hematocrit (blood only) 41.9 % (37-47); Hemoglobin 13.7 g/dL (12.0-16.0); Immature Granulocytes # (auto) 0.08 K/uL (0.00-0.02); Immature Granulocytes % (auto) 0.5 %; Lymphocytes # (auto) 0.66 K/uL (1.2-3.4); Lymphocytes % (auto) 4.3 %; Mean Corpuscular Hemoglobin 31.5 pg (25-34); Mean Corpuscular Hgb Conc 32.7 g/dL (32-36); Mean Corpuscular Volume 96.3 fL (80-100); Mean Platelet Volume 9.4 fL (7.4-10.4); Monocytes # (auto) 1.35 K/uL (0.11-0.59); Monocytes % (auto) 8.8 %; Neutrophils # (auto) 13.24 K/uL (1.4-6.5); Neutrophils % (auto) 86.3 %; Platelet Count 170 K/uL (130-400); RDW Coefficient of Variation 22.8 % (11.5-14.5); RDW Standard Deviation 80.3 fL (36.4-46.3); Red Blood Count 4.35 M/uL (4.2-5.4); White Blood Count 15.35 K/uL (4.8-10.8)
[2020-06-30] MEDS ORDERED: NITROGLYCERIN 2% OINTMENT 30GM TUBE ONE (12:34)
[2020-06-30 12:41] LABS: INR 1.5 (0.9-1.1); Partial Thromboplastin Ratio 1.3; Partial Thromboplastin Time 36.2 Seconds (21.0-31.0); Prothrombin Time 15.9 Seconds (9.0-12.0)
--- NOTE | 2020-06-30 12:41 | XRay Report ---
XR chest 1V portable CLINICAL HISTORY: SEPSIS COMPARISON STUDY: 01/15/2019 FINDINGS: The heart is normal in size. There is aortic tortuosity/ectasia. Since the prior study, the patient developed extensive bilateral interstitial pulmonary opacities. This could represent a bilat eral interstitial infectious/inflammatory process, or pulmonary edema. There are no significant pleur al effusions. There is no pneumothorax.[ IMPRESSION: Interval development of extensive bilateral interstitial pulmonary opacities, pulmonary e kojo versus an interstitial infectious/inflammatory process. Clinical and radiographic follow-up sherif mmended. ACT 112: Negative or not required by law. Electronically signed by: Breezy Sher M.D. 06/30/2020 12:40 PM
[2020-06-30 12:52] LABS: Albumin Level 1.8 gm/dl (3.4-5.0); Anisocytosis Present; Aspartate Aminotransferase 73 U/L (15-37); BUN Creatinine Ratio 33.8 (10-20); Blood Urea Nitrogen 42 mg/dl (7-18); Calcium 9.1 mg/dl (8.5-10.1); Carbon Dioxide 20 mmol/L (21-32); Chloride 104 mmol/L (98-107); Creatinine Clr Calc Pharmacy 43.7 ml/min; Echinocytes 1+; Est GFR (African American) 51.3; Est GFR (Non-African American) 44.3; Glucose 88 mg/dl (70-99); Magnesium 2.5 mg/dl (1.8-2.4); Sodium 134 mmol/L (136-145)
[2020-06-30] MEDS ORDERED: NITROGLYCERIN 2% OINTMENT 30GM TUBE EXT STA (12:53)
[2020-06-30 12:54] LABS: Alanine Aminotransferase 38 U/L (12-78); Albumin Globulin Ratio 0.4 (0.9-2); Alkaline Phosphatase 260 U/L (45-117); Bilirubin,Total 4.4 mg/dl (0.2-1); Globulin 4.9 gm/dl (2.5-4.0); Total Protein 6.7 gm/dl (6.4-8.2); Troponin I < 0.015 ng/ml (0-0.045)
[2020-06-30] MEDS ORDERED: SODIUM CHLORIDE 0.9% 1000ML 1,000 ML IV ONE (13:01)
--- NOTE | 2020-06-30 13:12 | CT Scan Report ---
CT head/brain wo con CLINICAL HISTORY: confusion COMPARISON STUDY: No previous studies for comparison. TECHNIQUE: Axial CT of the brain is performed from the vertex to the skull base. IV contrast was not administered for this examination. A dose lowering technique was utilized adhering to the principles of ALARA. CT DOSE: 729.78 mGycm FINDINGS: No intra or extra-axial mass lesions are visualized. There is no CT evidence of acute cortical infarc tion. There is no evidence of midline shift. There is no acute hemorrhage. No calvarial fractures ar e visualized. There are patchy white matter hypodensities likely on a small vessel basis. There is no evidence of pathologic ventricular dilatation. There is no evidence of acute sinusitis IMPRESSION: 1. No evidence of acute hemorrhage 2. Scattered white matter hypodensities, a finding which while nonspecific is statistically secondary to small vessel ischemic disease. ACT 112: Negative or not required by law. Electronically signed by: Breezy Sher M.D. 06/30/2020 1:11 PM
--- NOTE | 2020-06-30 13:19 | CT Scan Report ---
CT SCAN OF THE ABDOMEN AND PELVIS WITHOUT CONTRAST CLINICAL HISTORY: liver failure COMPARISON STUDY: 01/02/2018 TECHNIQUE: CT scan of the abdomen and pelvis was performed from the lung bases to the proximal femurs . Images are reviewed in the axial, sagittal, and coronal planes. IV contrast was not administered fo r this examination. A dose lowering technique was utilized adhering to the principles of ALARA. CT DOSE: 1230.77 mGycm FINDINGS: Lower chest: There is a moderate left pleural effusion. There are diffuse bilateral interstitial pulm onary opacities. There is increased soft tissue at the level the right hilum and adenopathy cannot be excluded. There are old right-sided rib fractures. Liver: The liver has a cirrhotic morphology. No focal masses are visualized in this noncontrast study Gallbladder: Surgically absent Spleen: Normal in size and attenuation. Pancreas: Unremarkable. Adrenal glands: There is low-density nodular thickening of the left adrenal gland. Kidneys: There is mild fullness the right renal collecting system. No renal, ureteral, or bladder ricky culi are visualized. Bowel: There are no transition zones to indicate bowel obstruction. There is colonic diverticulosis. No acute peridiverticular inflammatory changes are visualized. There is diffuse colonic wall thickeni ng, finding which may be secondary to hepatocellular disease. There is mild gastric wall thickening Peritoneum: There is a large volume of ascites. There is no free intraperitoneal air. Vasculature: The abdominal aorta is normal in course and caliber. Adenopathy: None. Pelvic viscera: The uterus appears surgically absent. There is an indwelling Enrique catheter. Skeletal structures: There is an old internally fixated intertrochanteric left hip fracture. There is an old L1 compression fracture status post vertebroplasty. There is evidence for anasarca. IMPRESSION: 1. Cirrhotic morphology of the liver. 2. Large volume of ascites 3. No evidence of bowel obstruction. No evidence of free air 4. Diffuse colonic wall thickening possibly secondary to hepatocellular disease 5. Diffuse bilateral interstitial pulmonary opacities 6. Moderate left pleural effusion 7. Right hilar prominence. Adenopathy cannot be excluded. ACT 112: Negative or not required by law. Electronically signed by: Breezy Sher M.D. 06/30/2020 1:17 PM
--- NOTE | 2020-06-30 13:28 | History & Physical Report ---
Date of Service June 30, 2020 Assessment & Plan (1) Acute respiratory failure: Patient acute hypoxic respiratory failure associate with the recent COVID- 19 diagnosis (06/27/2020) patient be supported with high flow oxygen dexamethasone convalescent plasma. Attempts at diuresis may be undertaken once her renal function is felt to be more defined. The patient currently has no urine output. She had most recently had an echocardiogram in May 2020 which showed preserved ejection fraction. However her renal function does give question to her intravascular volume status which may make diuresis a possible precipitant of worsening renal failure or hepatorenal syndrome. We will c ontinue with respiratory support at this time with titration and assessment of oxygen need (2) Sepsis: Initial concern for sepsis could be from bacterial peritonitis given her liver disease. Also alternatives could be sepsis from Covid versus urinary tract infection as per the ER attending. The patient does not have defined low blood pressure at this point time but she is tachypneic tachycardic has leukocytosis and elevated lactic acid and procalcitonin (3) Elevated lactic acid level: Patient's persistently elevated lactic acid could be from her liver failure or from sepsis. Concerns with pulmonary edema have made volume resuscitation hesitant in the emergency department to not precipitate worsened pulmonary failure with her Covid infection. Subsequently her renal function is remained stable despite lack of volume resuscitation and blood pressures not require pressor support. (4) Hepatic encephalopathy: Patient has a history of [place] with liver failure in the past. Patient has a profound elevation of her ammonia and is obtunded on presentation. Attempts to reduce her ammonia will be taken with lactulose enema. Patient will have a diagnostic and therapeutic paracentesis. Prior to the paracentesis intensive care unit services recommended 1 gm/kg albumin. Further discussion about if replacement would be needed for high-volume paracentesis will be happy intensive care unit team CT abd/pelvis 06/29/20 IMPRESSION: 1. Cirrhotic morphology of the liver. 2. Large volume of ascites 3. No evidence of bowel obstruction. No evidence of free air 4. Diffuse colonic wall thickening possibly secondary to hepatocellular disease 5. Diffuse bilateral interstitial pulmonary opacities 6. Moderate left pleural effusion 7. Right hilar prominence. Adenopathy cannot be excluded. (5) Diabetes mellitus, type 2: Patient typically takes Jardiance for diabetes we will place her on sliding scale without basal unit at this point time with surveillance to follow (6) CAD (coronary artery disease): Coronary artery disease as listed in the patient's chart the details are unknown the patient typically is not on any beta-blockers or aspirin therapy at this time there was discussion about beta-blockers but this was mostly for portal hypertension. Initial troponins negative. EKG is unremarkable for acute changes (7) Depression: Antidepressant medications will be held at this time (8) DVT prophylaxis: Patient be on Lovenox 40 mg subcu twice daily Updated her son Nicolas on 2 occasions in the emergency department he confirms his mother previously had made decisions to be DNR no ventilation no dialysis no feeding tubes. This is appropriately documented in her chart History of Present Illness Primary Care Provider: Wero Lambert The patient is a 69-year-old female who is reportedly Covid positive as of a few days ago. She is from [facility]. The patient today had a difficult time with her breathing and a change in mental status and appeared yellow in color. She seemed to have a sudden decline and was sent to the hospital via EMS. Recall admit the patient in connection with the intensive care unit team. The patient is obtunded and does not respond to pain. Patient has significant elevation of her ammonia to 300 and likely has a buttock encephalopathy but more concerning issues acute respiratory failure with hypoxia from a diagnosis of COVID-19 reportedly diagnosed on 06/27/2020. Patient also has significant abdominal distention and is known to have liver failure with previous paracentesis in May 2020 at [facility]. Concern for SBP and sepsis on presentation additionally the patient has had very little urine output in the emergency department. Currently her vital signs have been stable without volume resuscitation or pressors. Been administered to cefepime and albumin has been ordered per intensive care unit direction. Cultures have been taken for blood and she is having a paracentesis for diagnostic and therapeutic purposes. She has been consented for convalescent plasma and will receive dexamethasone and additionally she will receive ascorbic acid thiamine. Since she cannot take oral medication due to her obtundation initial discussion with ICU team regarding placement of a core safe tube for lactulose was felt to be contraindicated and a lactulose enemas ordered. Allergies Allergy/AdvReac Type Severity Reaction Status Date / Time cefuroxime Allergy Unknown Verified 06/30/20 18:10 amoxicillin [From Augmentin] AdvReac Vomiting Verified 06/30/20 12:59 clavulanic acid AdvReac Vomiting Verified 06/30/20 12:59 [From Augmentin] Home Medications Home Medications Medication Instructions Recorded Confirmed Type Jardiance 10 mg PO QAM 01/09/19 06/30/20 History omeprazole 20 mg PO DAILYBB 01/09/19 06/30/20 History sertraline 100 mg PO QAM 01/09/19 06/30/20 History Saccharomyces boulardii [Florastor] 250 mg PO QAM 06/19/20 06/30/20 History bupropion HCl 200 mg PO QAM 06/19/20 06/30/20 History calcium carbonate-vitamin D3 1 tab PO QAM 06/19/20 06/30/20 History ferrous sulfate 325 mg PO BID 06/19/20 06/30/20 History lactulose 20 g PO QAM 06/19/20 06/30/20 History magnesium oxide [MagOx] 400 mg PO BID 06/19/20 06/30/20 History ondansetron HCl [Zofran] 4 mg PO Q6H PRN 06/19/20 06/30/20 History pantoprazole [Protonix] 40 mg PO DAILYBB 06/19/20 06/30/20 History spironolactone 25 mg PO BID 06/19/20 06/30/20 History therapeutic multivitamin 1 tab PO QAM 06/19/20 06/30/20 History [Thera-Tabs] Past Med/Surg History Medical History Acute hypoxemic respiratory failure Anxiety Ascites CAD (coronary artery disease) NON-OBSTRUCTIVE COVID-19 Depression Diabetes mellitus, type 2 IDDM GERD (gastroesophageal reflux disease) CONTROLLED Hydronephrosis, right Hyperlipidemia Hypertension Mild aortic stenosis DAMARI 1.62CM2, MG 17MMHG PER 2017 ECHO Obesity Pleural effusion associated with hepatic disorder Urinary incontinence Surgical History Fusion of spine LUMBAR History of cardiac cath 2014= NO STENTS History of cholecystectomy History of colonoscopy History of cystoscopy History of hysterectomy History of total knee replacement RIGHT/LEFT Social History Smoking Status: Unknown if ever smoked Cigarettes Per Day: QUIT 6 YEARS AGO, HX OF SOCIAL USE; Second Hand Exposure: No; Hx Alcohol Use: No Hx Substance Use: No Preferred Language: [place] Communication Ability: unresponsi Contact Lens Technician Required: No Beliefs That Will Affect Care: None Current Living Situation: Shelter Other Information That Helps Us Care for You: No Feels Safe at Home: Yes Assistive Devices: None Review of Systems Review of Systems: Unobtainable due to cognitive status Physical Exam Physical Exam: The patient appeared chronically ill and obtunded Vital signs as documented. Head exam is normocephalic atraumatic and not exhibit scleral icterus Neck is without JVD, thyromegaly, or carotid bruits. Lungs are coarse and rhonchorous bilaterally Cardiac exam, Rhythm is regular.. Gallop was heard Abdominal exam reveals distended dull fluid wave Extremities are moderately edematous up to the thighs and buttock area bilaterally Neurologic exam is obtunded does not respond to pain Skin is without bruises or rashes Psychologically unable to be assessed. Her son gives a history of perhaps early onset dementia over the last few months with a more rapid decline. Results & Data Results & Data ([facility]) Vital Signs (Past 12 Hours) Vital Signs Temp Pulse Pulse Resp BP Pulse Ox 06/30/20 12:51 112 H 28 H 96 06/30/20 12:46 104 H 24 95 06/30/20 12:45 94 H 27 H 147/55 H 95 06/30/20 12:31 100 H 25 H 95 06/30/20 12:30 101 H 25 H 140/84 94 06/30/20 12:28 32 H 06/30/20 12:27 97 06/30/20 12:16 94 H 24 91 06/30/20 12:15 100 H 25 H 141/85 H 91 06/30/20 12:11 98 H 30 H 92 06/30/20 12:01 92 H 26 H 92 06/30/20 12:00 93 H 24 145/85 H 92 06/30/20 11:54 97 H 24 155/82 H 06/30/20 11:52 91 06/30/20 11:39 98.4 F 30 H 155/82 H 92 PG Care Time/CCT Total # of Minutes Spent Total Time Spent with Patient: Total time spent is greater than 50% in coordination of care (as documented) at patient's floor/unit and/or counseling patient: Coding Level of Care Code 53256 Initial Inpt Care Lvl 3 Diagnoses Acute respiratory failure J96.00 Sepsis A41.9 Elevated lactic acid level R79.89 Hepatic encephalopathy K72.90 Diabetes mellitus, type 2 E11.9 CAD (coronary artery disease) I25.10 Depression F32.9 DVT prophylaxis Z29.9
--- NOTE | 2020-06-30 13:48 | Critical Care Consultation ---
Date of Consultation June 30, 2020 Assessment & Plan (1) Acute hypoxemic respiratory failure: Assessment and Plan: -Acute decompensated liver failure -Acute hypoxemic respiratory failure with evidence of Covid pneumonitis -Acute kidney injury, possible hepatorenal syndrome -Massive ascites with associated hepatic hydrothorax -Coagulopathy -Altered mental status secondary to hyperammonemia and toxic encephalopathy Neurologic: We will place a rectal tube and start lactulose via rectal tube. Would recommend holding on placing an NG tube for the time being until evidence of GI bleeding is completely ruled out. Avoid mind altering substances. No evidence of cerebral edema on the CT of her head. Encephalitis from Covid is difficult to rule out. We will hold on lumbar puncture at this time as there are other clear etiologies for her altered mental status including hypoxemic respiratory failure and hyperammonemia. Pulmonary: Try to maintain sats above 92% with high flow nasal cannula. We will try to avoid intubation unless absolutely necessary. Pulmonary hypertension is difficult to rule out in the setting of cirrhosis. She will need an echocardiogram with a bubble study to rule out shunt especially in light of her hypoxemia. Hopefully, therapeutic paracentesis will improve her respiratory status by relieving her diaphragm. She may need thoracentesis as well given the evidence of a left hepatohydrothorax. Continue Decadron for her Covid pneumonitis. Order for convalescent plasma was placed by the hospitalist. Appreciate their assistance. Some of the infiltrates are seen may be related to secondary bacterial pneumonia and CHF findings. We will continue broad-spectrum antibiotics. Check procalcitonin and MRSA screen. Will obtain sputum cultures. Cardiovascular: As noted above, will obtain echocardiogram. Trend troponins. She may have evidence of pulmonary hypertension or shunt given her history of cirrhosis. Will need an echo to determine. We will obtain this on a nonemergent basis. Maintain mean arterial pressures above 65. Gastrointestinal: She is at risk for an upper GI bleed. Hemoglobin stable currently. Avoid placement of NG tube given history of varices. Will need a GI consult. Unfortunately, she is not a candidate for remdesivir given her acute liver failure. We will start her on rectal lactulose. Recheck ammonia level tomorrow. Ammonia levels can lag behind clinical improvement. Check salicylate and acetaminophen levels. Trend LFTs. Maintain mean arterial pressures above 65 as noted above. She may have spontaneous bacterial peritonitis. Therapeutic and diagnostic paracentesis performed in 2.5 L of ascitic fluid was removed. Continue broad-spectrum antibiotics. Start 40 mg twice daily of Protonix Renal: She has evidence of RODRIGUE. She is at risk for hepatorenal syndrome. We will give her 1 mg/kg of 25% albumin today and on day 3. Trend renal function. Urine output remains very poor. Infectious disease: Continue broad-spectrum antibiotics. Obtain procalcitonin, pancultures and cultures from paracentesis sample. Hematologic: Trend hemoglobin every 8 hours. She does have evidence of coagulopathy. Will check INR tomorrow. Will check ferritin level, CRP and D- dimer in light of her Covid 19 infection. We will hold on DVT prophylaxis at this time given her history of cirrhosis and acute liver failure. If no evidence of GI bleed, will start VTE prophylaxis tomorrow if able. Endocrine: Check TSH in light of her mental status. Glucose management per ICU protocol. She is at risk for hypoglycemia given her liver failure. She is currently on Decadron. F/E/N: N.p.o. status. Peripheral IVs in place. VTE prophylaxis: SCD CODE STATUS: Full code Family at bedside: None available at bedside given her COVID-19 status. I did have a discussion with the son over the phone. Disposition: Remain in the ICU/Covid 19 unit. Patient remains critically ill and her prognosis is very poor. I had lengthy discussions with the hospitalist, the ER physician and the bedside nurse. I have personally spent 71 minutes of critical care time in the direct management of this patient. This is a life/limb threatening event. This includes time spent evaluating patient, direct bedside care, chart review, placing orders, interpretation of diagnostic studies, discussion with consultants, patient, and family members, as well as other required patient management activities. This time is exclusive of all separately billable procedures, and teaching time and separate from and in addition to any other critical care service time. Thank you for allowing us to participate in the care of this patient. (2) Hepatic encephalopathy: (3) Ascites: (4) Pleural effusion associated with hepatic disorder: (5) Diabetes mellitus, type 2: (6) COVID-19: History of Present Illness Reason for Consultation: Altered mental status with acute hypoxemic respiratory failure in a Covid positive patient Requesting Physician: Dr. Nicolas Seaman Attending Physician: Dr. Fab Armas History of Present Illness 69-year-old [facility] who is presenting to the hospital due to altered mental status. Notably she was in the emergency department on 06/19/2020 due to nausea and vomiting. She was noted to have a cirrhosis and GI bleeds at that time. She had guaiac testing of the stool that was negative. She had a bowel movement that did not appear to be bloody. CBC and chemistry was unremarkable at that time. She was [facility] that day. Today she presented altered mental status and was found to be Covid positive a few days back. She resides at her side penitentiary. She apparently was having trouble with her breathing and mentation. She is currently on 35 L of oxygen and 70% FiO2. Lab values are remarkable for WBC count of 15,000. Le ft shift is present. Lymphopenia is also present. INR of 1.5. She has mild hyponatremia with a sodium of 134. RODRIGUE present with a creatinine 1.24. Lactate of 4.4. LFTs mildly deranged with a total bilirubin of 4.4 and AST of 73. Albumin is very low at 1.8. Glucose is 88. Hyperammonemia is present with an ammonium of 355.1. CT abdomen pelvis was obtained which demonstrated a cirrhotic morphology to the liver. Large volume ascites. Diffuse colonic wall thickening possibly secondary to hepatocellular disease. Diffuse bilateral interstitial pulmonary opacities. Moderate left pleural effusion. CT head with no evidence of acute hemorrhage. Scattered white matter hypodensities were seen. Chest x-ray demonstrated interval development of extensive bilateral pulmonary opacities. Notably, she has an ultrasound of her liver dating back to 02/07/2020 which demonstrated hepatic cirrhosis slightly progressed from 2019. Prior cholecystectomy was noted. The patient was completely obtunded on my exam. She was not able to give any history. I did discuss the case with her son Antoine Still over the phone. He indicated that he has not had any contact with her in several weeks. He c urrently lives in [place]. He notes that she had a living will and healthcare power of deputy prosecuting attorney filled out. In that documentation indicates that she wanted to be DNR/DNI. She also did not want hemodialysis if we came to that point. It did seem that she was okay with regular ICU care at this point. Indicated that she likely had a paracentesis and [facility] this past May. Allergies Allergy/AdvReac Type Severity Reaction Status Date / Time amoxicillin [From Augmentin] AdvReac Vomiting Verified 06/30/20 12:59 clavulanic acid AdvReac Vomiting Verified 06/30/20 12:59 [From Augmentin] Home Medications Home Medications Medication Instructions Recorded Confirmed Type Jardiance 10 mg PO QAM 01/09/19 06/30/20 History omeprazole 20 mg PO DAILYBB 01/09/19 06/30/20 History sertraline 100 mg PO QAM 01/09/19 06/30/20 History Saccharomyces boulardii [Florastor] 250 mg PO QAM 06/19/20 06/30/20 History bupropion HCl 200 mg PO QAM 06/19/20 06/30/20 History calcium carbonate-vitamin D3 1 tab PO QAM 06/19/20 06/30/20 History ferrous sulfate 325 mg PO BID 06/19/20 06/30/20 History lactulose 20 g PO QAM 06/19/20 06/30/20 History magnesium oxide [MagOx] 400 mg PO BID 06/19/20 06/30/20 History ondansetron HCl [Zofran] 4 mg PO Q6H PRN 06/19/20 06/30/20 History pantoprazole [Protonix] 40 mg PO DAILYBB 06/19/20 06/30/20 History spironolactone 25 mg PO BID 06/19/20 06/30/20 History therapeutic multivitamin 1 tab PO QAM 06/19/20 06/30/20 History [Thera-Tabs] Patient History Medical History Acute hypoxemic respiratory failure Anxiety Ascites CAD (coronary artery disease) NON-OBSTRUCTIVE COVID-19 Depression Diabetes mellitus, type 2 IDDM GERD (gastroesophageal reflux disease) CONTROLLED Hydronephrosis, right Hyperlipidemia Hypertension Mild aortic stenosis DAMARI 1.62CM2, MG 17MMHG PER 2017 ECHO Obesity Pleural effusion associated with hepatic disorder Urinary incontinence Surgical History Fusion of spine LUMBAR History of cardiac cath 2014= NO STENTS History of cholecystectomy History of colonoscopy History of cystoscopy History of hysterectomy History of total knee replacement RIGHT/LEFT Social History Smoking Status: Former smoker Cigarettes Per Day: QUIT 6 YEARS AGO, HX OF SOCIAL USE; Second Hand Exposure: No; Hx Alcohol Use: Yes Alcohol type: other Hx Substance Use: No Preferred Language: Kuwaiti Communication Ability: Effective 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 She was tachypneic. High flow nasal cannula was in place. She was wearing a mask and shield due to her COVID-19 infection. I was able to turn down her FiO2 to 55% and I left her flow rate at 35 L/min. She was saturating at 96%. Eyes: PERRL, conjunctivae normal, anicteric sclerae ENMT: Mask and shield in place. No obvious deformities. Neck: + thick neck Respiratory: + labored breathing and + abnormal respiratory pattern Auscultation: + diminished lung sounds and + crackles Cardiovascular: RRR, no murmur, no edema Gastrointestinal (Abdomen): Inspection/Auscultation: + abdomen distended and + abdominal edema Musculoskeletal: Unable to examine due to her mental status Skin: no rashes, warm and dry Neurologic: + obtunded Psychiatric: Unable to examine due to mental status Results & Data Results & Data ([facility]) Vital Signs (Past 12 Hours) Vital Signs Temp Pulse Pulse Resp BP Pulse Ox 06/30/20 12:51 112 H 28 H 96 06/30/20 12:46 104 H 24 95 06/30/20 12:45 94 H 27 H 147/55 H 95 06/30/20 12:31 100 H 25 H 95 06/30/20 12:30 101 H 25 H 140/84 94 06/30/20 12:28 32 H 06/30/20 12:27 97 06/30/20 12:16 94 H 24 91 06/30/20 12:15 100 H 25 H 141/85 H 91 06/30/20 12:11 98 H 30 H 92 06/30/20 12:01 92 H 26 H 92 06/30/20 12:00 93 H 24 145/85 H 92 06/30/20 11:54 97 H 24 155/82 H 06/30/20 11:52 91 06/30/20 11:39 98.4 F 30 H 155/82 H 92 I reviewed the patient's vital signs, labs and imaging Coding Level of Care Code Critical Care 1st 30-74 mins Diagnoses Acute hypoxemic respiratory failure J96.01 Hepatic encephalopathy K72.90 Ascites R18.8 Pleural effusion associated with hepatic disorder K76.9; J91.8 Diabetes mellitus, type 2 E11.9 COVID-19 U07.1 Time Spent (min) 71
[2020-06-30 13:51] LABS: Appearance Urine Slightly Cloudy (Clear); Blood Urine 3+ (Negative); Color Urine Amber; Glucose Urine UA Trace (Negative); Ketones Urine 1+ (Negative); Leukocyte Esterase Urine 2+ (Negative); Nitrite Urine Positive (Negative); Protein Urine 2+ (Negative); Specific Gravity Urine 1.025 (1.000-1.030); Urobilinogen Urine Positive (Negative); pH Urine 5.5 (4.5-7.5)
--- NOTE | 2020-06-30 14:01 | Electrocardiogram Report ---
Test Reason : Blood Pressure : / mmHG Vent. Rate : 100 BPM Atrial Rate : 100 BPM P-R Int : 144 ms QRS Dur : 082 ms QT Int : 362 ms P-R-T Axes : 004 -32 -36 degrees QTc Int : 466 ms Poor data quality, interpretation may be adversely affected Normal sinus rhythm Left axis deviation Low voltage QRS Diffuse Minor Nonspecific T wave abnormality Abnormal ECG When compared with ECG of 19-JUN-2020 14:37, Minimal criteria for Anteroseptal infarct are no longer Present Otherwise no significant change Confirmed by Eduin Valles ([id number]) on 06/30/2020 2:00:43 PM Referred By: REFERRED SELF Confirmed By:Eduin Valles
[2020-06-30 14:06] LABS: Bilirubin Urine Negative (Negative); Ictotest Urine Negative (Negative)
[2020-06-30 14:14] LABS: Bacteria Urine 2+ (Negative); Epithelial Cell Urine >30 /lpf (0-5); Hyaline Casts Urine 0-5 /lpf (0-5); Mucus Urine Present (None Prsent); WBC Urine >30 /hpf (0-5)
[2020-06-30] MEDS: ALBUMIN 25% 50 ML IV SCH ×8 (14:35→22:30)
[2020-06-30] MEDS ORDERED: CARBOHYDRATES FOR HYPOGLYCEMIA PO PRN (14:39)
[2020-06-30] MEDS ORDERED: GLUCAGON FOR INJ 1 MG VIAL SQ PRN (14:39)
[2020-06-30] MEDS ORDERED: GLUCOSE 40% GEL 15 GM TUBE PO PRN (14:39)
[2020-06-30] MEDS ORDERED: DEXTROSE 50% 50 ML SYRINGE IV PRN (14:39)
[2020-06-30] MEDS ORDERED: GLUCOSE 10 TABS/TUBE PO PRN (14:39)
[2020-06-30] MEDS ORDERED: VANCOMYCIN CONSULT ACTIVE PRN (15:17)
[2020-06-30] MEDS ORDERED: VANCOMYCIN HCL 1,500 MG in SODIUM CHLORIDE 0.9% 500 ML IV SCH (15:30)
--- NOTE | 2020-06-30 15:33 | Procedure Note ---
Procedure Note Date of Service June 30, 2020 Note Procedure: Diagnostic and/or therapeutic ultrasound-guided catheter paracentesis [place] Cook: Dr. Darshan Fry Indication: Large volume ascites Consent: Consent was obtained over the phone from the patient's son, Antoine Still. Timeout was performed prior to the procedure. Anesthesia: 8 mL's of 1% lidocaine without epinephrine given locally Procedure: The area was cleansed and draped in usual sterile fashion using chlorhexidine scrub. Anesthesia was achieved with 1% lidocaine. The _ of the abdomen was prepped and draped in a sterile fashion using chlorhexidine scrub. 1% lidocaine was used to numb the skin, soft tissue and peritoneum. The paracentesis catheter was inserted and advanced with negative pressure until yellow colored fluid was aspirated. Approximately 150 mL of ascitic fluid was collected and sent for l aboratory analysis. The catheter was then connected to the vaccutainer and 2.5L liters of additional ascitic fluid were drained. The catheter was removed and minimal leaking was noted. A tegaderm was placed. Specimens were sent for culture, cell counts and cytology. Coding CPT Codes Skin and Soft Tissue - Skin and Soft Tissue: 97745 Abd paracentesis w/ imaging ([id number]) [facility] Procedure Codes (Charges) Skin and Soft Tissue Skin and Soft Tissue: 70940 Abd paracentesis w/ imaging
[2020-06-30 15:34] LABS: Glucose Peritoneal Fluid 90 mg/dl
[2020-06-30 15:39] LABS: Hematocrit (blood only) 38.2 % (37-47); Hemoglobin 12.6 g/dL (12.0-16.0); Mean Corpuscular Hemoglobin 31.8 pg (25-34); Mean Corpuscular Volume 96.5 fL (80-100); Mean Platelet Volume 9.8 fL (7.4-10.4); Platelet Count 150 K/uL (130-400); RDW Coefficient of Variation 22.9 % (11.5-14.5); RDW Standard Deviation 80.4 fL (36.4-46.3); Red Blood Count 3.96 M/uL (4.2-5.4); White Blood Count 13.76 K/uL (4.8-10.8)
[2020-06-30 15:41] LABS: LDH Peritoneal Fluid 68 U/L
--- NOTE | 2020-06-30 15:43 | Ultrasound Report ---
ULTRASOUND GUIDANCE FOR PARACENTESIS CLINICAL HISTORY: ascites COMPARISON STUDY: CT of the abdomen and pelvis June 30, 2020 1:05 PM. FINDINGS: Ultrasound guidance was provided by the lining machine operator for Dr. Fry. Ascites was noted wit hin the 4 quadrants. A suitable pocket for paracentesis within the right lower quadrant was noted. IMPRESSION: Ultrasound guidance provided by the lining machine operator for right lower quadrant paracentesis pe rformed by Dr. Fry. ACT 112: Negative or not required by law. Electronically signed by: Johnny Adan M.D. 06/30/2020 3:42 PM
[2020-06-30 15:57] LABS: Appearance Peritoneal Fluid CLEAR; Basophils, Fluid 0 %; Color Peritoneal Fluid YELLOW; Eosinophils, Fluid 0 %; Lymphocytes, Fluid 14 %; Mono,Macrophage,Mesothelial 67 %; Neutrophils, Fluid 19 %; RBC Peritoneal Fluid (A) < 3000 /uL; WBC Peritoneal Fluid (A) 72 /ul (0-300)
[2020-06-30 16:07] LABS: C Reactive Protein 8.44 mg/dl (0-0.29); Troponin I < 0.015 ng/ml (0-0.045)
[2020-06-30] MEDS: metroNIDAZOLE 500 MG/100 ML BAG IV SCH (16:15)
--- NOTE | 2020-06-30 16:44 | Gastrointestinal Consultation ---
Date of Consultation June 30, 2020 History of Present Illness Reason for Consultation: SNF/cirrhosis Requesting Physician: Dr. Fry Attending Physician: Dr. Fry History of Present Illness Patient is a Allergies Allergy/AdvReac Type Severity Reaction Status Date / Time amoxicillin [From Augmentin] AdvReac Vomiting Verified 06/30/20 12:59 clavulanic acid AdvReac Vomiting Verified 06/30/20 12:59 [From Augmentin] Home Medications Home Medications Medication Instructions Recorded Confirmed Type Jardiance 10 mg PO QAM 01/09/19 06/30/20 History omeprazole 20 mg PO DAILYBB 01/09/19 06/30/20 History sertraline 100 mg PO QAM 01/09/19 06/30/20 History Saccharomyces boulardii [Florastor] 250 mg PO QAM 06/19/20 06/30/20 History bupropion HCl 200 mg PO QAM 06/19/20 06/30/20 History calcium carbonate-vitamin D3 1 tab PO QAM 06/19/20 06/30/20 History ferrous sulfate 325 mg PO BID 06/19/20 06/30/20 History lactulose 20 g PO QAM 06/19/20 06/30/20 History magnesium oxide [MagOx] 400 mg PO BID 06/19/20 06/30/20 History ondansetron HCl [Zofran] 4 mg PO Q6H PRN 06/19/20 06/30/20 History pantoprazole [Protonix] 40 mg PO DAILYBB 06/19/20 06/30/20 History spironolactone 25 mg PO BID 06/19/20 06/30/20 History therapeutic multivitamin 1 tab PO QAM 06/19/20 06/30/20 History [Thera-Tabs] Patient History Medical History Acute hypoxemic respiratory failure Anxiety Ascites CAD (coronary artery disease) NON-OBSTRUCTIVE COVID-19 Depression Diabetes mellitus, type 2 IDDM GERD (gastroesophageal reflux disease) CONTROLLED Hydronephrosis, right Hyperlipidemia Hypertension Mild aortic stenosis DAMARI 1.62CM2, MG 17MMHG PER 2017 ECHO Obesity Pleural effusion associated with hepatic disorder Urinary incontinence Surgical History Fusion of spine LUMBAR History of cardiac cath 2015= NO STENTS History of cholecystectomy History of colonoscopy History of cystoscopy History of hysterectomy History of total knee replacement RIGHT/LEFT Social History Smoking Status: Former smoker Cigarettes Per Day: QUIT 6 YEARS AGO, HX OF SOCIAL USE; Second Hand Exposure: No; Hx Alcohol Use: Yes Alcohol type: other Hx Substance Use: No Preferred Language: North Korean Communication Ability: Effective 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: No Beliefs That Will Affect Care: None Current Living Situation: Alone Feels Safe at Home: Yes Assistive Devices: Denture - Upper, Denture - Lower and Glasses Results & Data ([facility]) Vital Signs (Past 12 Hours) Vital Signs Temp Pulse Pulse Resp BP Pulse Ox 06/30/20 16:27 91 H 24 89 L 06/30/20 15:53 91 H 25 H 93 06/30/20 15:31 90 25 H 94 06/30/20 15:30 90 24 115/62 95 06/30/20 15:16 93 H 25 H 94 06/30/20 15:15 91 H 26 H 94 06/30/20 15:01 93 H 26 H 94 06/30/20 15:00 92 H 26 H 95 06/30/20 14:46 92 H 19 94 06/30/20 14:45 94 H 24 121/79 94 06/30/20 14:40 99 H 26 H 133/76 96 06/30/20 14:30 97 H 25 H 144/85 H 96 06/30/20 14:15 93 H 25 H 118/85 95 06/30/20 14:01 95 H 24 95 06/30/20 14:00 95 H 25 H 128/93 96 06/30/20 13:46 93 H 25 H 95 06/30/20 13:45 93 H 24 133/90 96 06/30/20 13:31 96 H 24 96 06/30/20 13:30 96 H 25 H 149/72 H 96 06/30/20 12:51 112 H 28 H 96 06/30/20 12:46 104 H 24 95 06/30/20 12:45 94 H 27 H 147/55 H 95 06/30/20 12:31 100 H 25 H 95 06/30/20 12:30 101 H 25 H 140/84 94 06/30/20 12:28 32 H 10/19/20 12:27 97 06/30/20 12:16 94 H 24 91 06/30/20 12:15 100 H 25 H 141/85 H 91 06/30/20 12:11 98 H 30 H 92 06/30/20 12:01 92 H 26 H 92 06/30/20 12:00 93 H 24 145/85 H 92 06/30/20 11:54 97 H 24 155/82 H 06/30/20 11:52 91 06/30/20 11:39 36.9 C 30 H 155/82 H 92 PG Care Time/CCT Total # of Minutes Spent Total Time Spent with Patient: Total time spent is greater than 50% in coordination of care (as documented) at patient's floor/unit and/or counseling patient: Coding
[2020-06-30 16:46] LABS: Acetaminophen < 2 ug/ml (10-30)
[2020-06-30 16:47] LABS: Salicylate < 1.7 mg/dl (2.8-20)
[2020-06-30 17:03] LABS: iSTAT Arterial Blood Gas HCO3 20 meg/L (19-24); iSTAT Arterial Blood Gas pCO2 24 mmHg (35-46); iSTAT Arterial Blood Gas pH 7.53 (7.35-7.45); iSTAT Arterial Blood Gas pO2 86 mmHg (80-95); iSTAT Carbon Dioxide 21 mmol/L (24-31)
--- NOTE | 2020-06-30 17:03 | Communication Note ---
Date of Service: June 30, 2020 Consult Reason:PRISON/cirrhosis Ordering physician: Dr. Mccord Consulting physician: Dr. Andrews Sofy Still is a 69 year-old female with an extensive past medical history who was admitted to the hospital due to acute onset of altered mental status in the setting of recent diagnosis of COVID-19. On arrival, she was found to be obtunded, with an ammonia level of 355.1. She is also noted to have an elevated INR of 1.5 which by guidelines is consistent with acute liver failure in the setting of comorbid COVID-19 infection. There was concern for possible sepsis with associated SBP due to large volume ascites noted on CT imaging. She did undergo a therapeutic/diagnostic paracentesis and peritoneal WBC measurement was 72 favoring against the diagnosis. Cultures are pending and she is currently being treated with broad spectrum antibiotics. Her Tylenol level was negative. In the setting of acute renal impairment and concern for development of HRS, she was given IV albumin. She was appropriately ordered lactulose enemas and started on Protonix 40 mg twice daily to reduce risks of associated GIB. When she is able to take PO, she should also be initiated on Xifaxan 550 mg twice daily. The patient is not likely an OLT candidate and given medical comorbidities and age but could consider discussion with a transplant center. She has been made a DNR and the overall prognosis of this patient is poor due to evidence of multi- system organ failure. To minimize healthcare provider exposure risk to COVID-19, the patient was not evaluated in person as a physical examination offers minimal clinical benefit in this setting. Chart review was performed with evaluation of relevant laboratory testing and imaging as well as medical provider documentation, vital signs and MAR. We will continue to follow this patient's clinical course and advise as appropriate. Please feel free to contact us if you have any questions or concerns. I agree with QIANA Saleh as above. I reviewed the patient's medical record thoroughly, and agree with the above noted plan. I did discuss the case in detail with her son, Nicolas Still, via Telephone. Of note, he states that she underwent an extensive GI workup at [facility], and was hospitalized for a few weeks, and was discharged, however, subsequently fell and broke her hip in early May with repair at [facility], followed by admission to [facility] in [place], [place]. She was admitted at [facility] in May, and did undergo an paracentesis at that time. She was subsequently discharged to the [facility], where she was prior to her transfer to [facility] today. I would [facility].
[2020-06-30 17:04] LABS: iSTAT Sample Type Arterial
[2020-06-30] MEDS ORDERED: DEXTROSE 50% 50 ML SYRINGE IV ONE (17:06)
[2020-06-30] MEDS ORDERED: dexAMETHasone 6 MG in DEXTROSE 5% 25 ML IV SCH (17:21)
[2020-06-30] MEDS ORDERED: ASCORBIC ACID 1,500 MG, THIAMINE HCL 100 MG in 0.9 % SODIUM CHLORIDE 100 ML IV SCH (17:21)
[2020-06-30] MEDS ORDERED: LACTULOSE 200 GM, WATER, STERILE IRRIG 700 ML, BARCODE IDENTIFIER 1 EA PR SCH (17:21)
[2020-06-30 17:28] LABS: INR 1.6 (0.9-1.1); Prothrombin Time 16.1 Seconds (9.0-12.0)
[2020-06-30] MEDS ORDERED: ICU PROTOCOL FOR HYPERGLYCEMIA PRN (17:45)
[2020-06-30] MEDS: INSULIN ASPART 100 UNITS/ML 3 ML PEN SC SCH (18:00)
[2020-06-30] MEDS ORDERED: DEXAMETHASONE SOD PHOSPHATE 6 MG in SYRINGE 0 ML IV SCH (18:00)
[2020-06-30] MEDS ORDERED: ICU ELECTROLYTE REPLACEMENT PROTOCOL SCH (18:00)
[2020-06-30] MEDS ORDERED: DEXTROSE 5% 1,000 ML IV SCH (18:45)
[2020-06-30] MEDS: LACTULOSE 200 GM, WATER, STERILE IRRIG 700 ML, BARCODE IDENTIFIER 1 EA PR SCH (18:48)
[2020-06-30 19:26] LABS: BUN Creatinine Ratio 31.5 (10-20); Calcium 8.4 mg/dl (8.5-10.1); Creatinine Clr Calc Pharmacy 37.7 ml/min; Est GFR (African American) 43.6; Est GFR (Non-African American) 37.6; Potassium 4.7 mmol/L (3.5-5.1)
[2020-06-30] MEDS: OCTREOTIDE ACETATE 500 MCG in 0.9 % SODIUM CHLORIDE 100 ML IV SCH (19:33)
[2020-06-30] MEDS ORDERED: THIAMINE HCL 100 MG in SYRINGE 9 ML IV SCH (20:00)
[2020-06-30] MEDS ORDERED: PANTOprazole 40 MG in SYRINGE 0 ML IV SCH (21:00)
[2020-06-30] MEDS ORDERED: INSULIN ASPART 100 UNITS/ML 3 ML PEN SC SCH (21:00)
[2020-06-30] MEDS: ENOXAPARIN INJ 40 MG/0.4 ML SYR SQ SCH ×2 (21:04→21:10)
[2020-06-30] MEDS: PANTOprazole 40 MG in SYRINGE 0 ML IV SCH (21:11)
[2020-06-30 23:08] LABS: Hematocrit (blood only) 34.9 % (37-47); Hemoglobin 11.5 g/dL (12.0-16.0); Mean Corpuscular Hemoglobin 31.9 pg (25-34); Mean Corpuscular Volume 96.9 fL (80-100); Platelet Count 115 K/uL (130-400); RDW Coefficient of Variation 22.9 % (11.5-14.5); RDW Standard Deviation 80.7 fL (36.4-46.3); White Blood Count 11.22 K/uL (4.8-10.8)
[2020-07-01] MEDS: ALBUMIN 25% 50 ML IV SCH ×2 (00:20→01:15)
[2020-07-01] MEDS: INSULIN ASPART 100 UNITS/ML 3 ML PEN SC SCH ×2 (01:15→08:32)
[2020-07-01] MEDS: LACTULOSE 200 GM, WATER, STERILE IRRIG 700 ML, BARCODE IDENTIFIER 1 EA PR SCH ×2 (01:56→08:34)
[2020-07-01 02:57] LABS: Hematocrit (blood only) 33.4 % (37-47); Hemoglobin 10.5 g/dL (12.0-16.0); Mean Corpuscular Hemoglobin 31.3 pg (25-34); Mean Corpuscular Hgb Conc 31.4 g/dL (32-36); Mean Corpuscular Volume 99.4 fL (80-100); Mean Platelet Volume 9.8 fL (7.4-10.4); Platelet Count 132 K/uL (130-400); RDW Coefficient of Variation 23.2 % (11.5-14.5); RDW Standard Deviation 82.7 fL (36.4-46.3); Red Blood Count 3.36 M/uL (4.2-5.4); White Blood Count 10.75 K/uL (4.8-10.8)
[2020-07-01 03:14] LABS: Albumin Level 3.1 gm/dl (3.4-5.0); BUN Creatinine Ratio 31.3 (10-20); Calcium 8.1 mg/dl (8.5-10.1); Creatinine Clr Calc Pharmacy 35.9 ml/min; Est GFR (African American) 41.1; Est GFR (Non-African American) 35.5; Magnesium 2.5 mg/dl (1.8-2.4); Potassium 4.4 mmol/L (3.5-5.1)
[2020-07-01 03:21] LABS: Albumin Globulin Ratio 1.1 (0.9-2); Anisocytosis Present; Basophils # (auto) 0.01 K/uL (0-0.2); Basophils % (auto) 0.1 %; Bilirubin,Total 4.6 mg/dl (0.2-1); Echinocytes 1+; Globulin 2.7 gm/dl (2.5-4.0); Immature Granulocytes % (auto) 0.9 %; Lymphocytes # (auto) 0.31 K/uL (1.2-3.4); Lymphocytes % (auto) 2.9 %; Monocytes # (auto) 0.13 K/uL (0.11-0.59); Monocytes % (auto) 1.2 %; Neutrophils % (auto) 94.9 %; Phosphorus 3.8 mg/dl (2.5-4.9); Polychromasia 1+; Total Protein 5.8 gm/dl (6.4-8.2)
[2020-07-01 03:29] LABS: INR 2.2 (0.9-1.1); Prothrombin Time 22.4 Seconds (9.0-12.0)
[2020-07-01] MEDS: OCTREOTIDE ACETATE 500 MCG in 0.9 % SODIUM CHLORIDE 100 ML IV SCH (03:50)
[2020-07-01] MEDS: metroNIDAZOLE 500 MG/100 ML BAG IV SCH (03:51)
[2020-07-01] MEDS ORDERED: STAT IV Infusion **Titration per Protocol STA (05:39)
[2020-07-01] MEDS ORDERED: NOREPINEPHRINE BIT INJ 8 MG in DEXTROSE 5% 500 ML IV SCH (05:45)
[2020-07-01 07:44] LABS: Estimated Average Glucose 88 mg/dl; Hemoglobin A1C 4.7 % (4.5-5.6)
[2020-07-01] MEDS: PANTOprazole 40 MG in SYRINGE 0 ML IV SCH (08:33)
--- NOTE | 2020-07-01 09:29 | History & Physical Bridge Note ---
Date of Service July 01, 2020 History & Physical Bridge Note Patient is a 69 yo female with COVID19, sepsis, and acute liver & kidney failure. INR today is 2.2. AST 60, ALT 23. She underwent a large volume paracentesis that did not indicate concern of SBP. Cultures from ascitic fluid are pending. In the setting of acute renal impairment and concern for development of HRS, she was given IV albumin. She was appropriately ordered lactulose enemas and started on Protonix 40 mg twice daily to reduce risks of associated GIB. When she is able to take PO, she should also be initiated on Xifaxan 550 mg twice daily. Given age, COVID19 infection, and multiple comorbidities, this patient is unlikely to be a liver transplant candidate, however if desired this could be discussed with a transplant center. This evaluation was conducted via chart review--patient is positive for COVID19 and was not evaluated in person to minimize healthcare provider exposure risk. Chart review was performed with evaluation of relevant laboratory testing and imaging as well as medical provider documentation, vital signs and MAR. Agree with obtaining recent notes/studies from [facility]. We will continue to follow this patient's clinical course indirectly and advise as needed. Please feel free to contact us if you have any questions or concerns (extension [phone] or [phone]). Agree with EDU Chow, as above I would recommend continuing her current therapy and supportive care We will follow her clinical course and make further recommendations as needed.
[2020-07-01] MEDS ORDERED: VANCOMYCIN HCL 500 MG in SODIUM CHLORIDE 0.9% 250 ML IV SCH (09:30)
--- NOTE | 2020-07-01 09:35 | Critical Care Progress Note ---
Date of Service July 01, 2020 Assessment & Plan (1) Acute hypoxemic respiratory failure: Assessment and Plan: -Acute decompensated liver failure -Acute hypoxemic respiratory failure with evidence of Covid pneumonitis -Acute kidney injury, possible hepatorenal syndrome -Massive ascites with associated hepatic hydrothorax -Coagulopathy -Altered mental status secondary to hyperammonemia and toxic encephalopathy Neurologic: We will place a rectal tube and start lactulose via rectal tube. Would recommend holding on placing an NG tube for the time being until evidence of GI bleeding is completely ruled out. Avoid mind altering substances. No evidence of cerebral edema on the CT of her head. Encephalitis from Covid is difficult to rule out. We will hold on lumbar puncture at this time as there are other clear etiologies for her altered mental status including hypoxemic respiratory failure and hyperammonemia. Pulmonary: Try to maintain sats above 92% with high flow nasal cannula. We will try to avoid intubation unless absolutely necessary. Pulmonary hypertension is difficult to rule out in the setting of cirrhosis. She will need an echocardiogram with a bubble study to rule out shunt especially in light of her hypoxemia. Hopefully, therapeutic paracentesis will improve her respiratory status by relieving her diaphragm. She may need thoracentesis as well given the evidence of a left hepatohydrothorax. Continue Decadron for her Covid pneumonitis. Order for convalescent plasma was placed by the hospitalist. Appreciate their assistance. Some of the infiltrates are seen may be related to secondary bacterial pneumonia and CHF findings. We will continue broad-spectrum antibiotics. Check procalcitonin and MRSA screen. Will obtain sputum cultures. Cardiovascular: As noted above, will obtain echocardiogram. Trend troponins. She may have evid ence of pulmonary hypertension or shunt given her history of cirrhosis. Will need an echo to determine. We will obtain this on a nonemergent basis. Maintain mean arterial pressures above 65. Gastrointestinal: She is at risk for an upper GI bleed. Hemoglobin stable currently. Avoid placement of NG tube given history of varices. Will need a GI consult. Unfortunately, she is not a candidate for remdesivir given her acute liver failure. We will start her on rectal lactulose. Recheck ammonia level tomorrow. Ammonia levels can lag behind clinical improvement. Check salicylate and acetaminophen levels. Trend LFTs. Maintain mean arterial pressures above 65 as noted above. She may have spontaneous bacterial peritonitis. Therapeutic and diagnostic paracentesis performed in 2.5 L of ascitic fluid was removed. Continue broad-spectrum antibiotics. Start 40 mg twice daily of Protonix Renal: She has evidence of RODRIGUE. She is at risk for hepatorenal syndrome. We will give her 1 mg/kg of 25% albumin today and on day 3. Trend renal function. Urine output remains very poor. Infectious disease: Continue broad-spectrum antibiotics. Obtain procalcitonin, pancultures and cultures from paracentesis sample. Hematologic: Trend hemoglobin every 8 hours. She does have evidence of coagulopathy. Will check INR tomorrow. Will check ferritin level, CRP and D- dimer in light of her Covid 19 infection. We will hold on DVT prophylaxis at this time given her history of cirrhosis and acute liver failure. If no evidence of GI bleed, will start VTE prophylaxis tomorrow if able. Endocrine: Check TSH in light of her mental status. Glucose management per ICU protocol. She is at risk for hypoglycemia given her liver failure. She is currently on Decadron. F/E/N: N.p.o. status. Peripheral IVs in place. VTE prophylaxis: SCD CODE STATUS: Full code Family at bedside: None available at bedside given her COVID-19 status. I did have a discussion with the son over the phone. Disposition: Remain in the ICU/Covid 19 unit. Patient remains critically ill and her prognosis is very poor. I had lengthy discussions with the hospitalist, the ER physician and the bedside nurse. I have personally spent 71 minutes of critical care time in the direct management of this patient. This is a life/limb threatening event. This includes time spent evaluating patient, direct bedside care, chart review, placing orders, interpretation of diagnostic studies, discussion with consultants, patient, and family members, as well as other required patient management activities. This time is exclusive of all separately billable procedures, and teaching time and separate from and in addition to any other critical care service time. Thank you for allowing us to participate in the care of this patient. (2) Hepatic encephalopathy: (3) Ascites: (4) Pleural effusion associated with hepatic disorder: (5) Diabetes mellitus, type 2: (6) COVID-19: Admission and Anticipated Discharge Date Admission Date: June 30, 2020 Results & Data Results & Data ([facility]) Vital Signs (Past 12 Hours) Vital Signs Temp Pulse Pulse Resp BP BP Pulse Ox 07/01/20 08:12 111 H 26 H 87 L 07/01/20 06:04 88 22 84 L 07/01/20 04:30 87 21 87 L 07/01/20 04:00 88 21 89 L 07/01/20 03:55 88 22 81/56 L 89 L 07/01/20 03:52 89 23 81/56 L 89 L 07/01/20 03:49 90 95/57 L 89 L 07/01/20 03:30 90 23 90 07/01/20 03:28 98.1 F 90 90 23 95/57 L 95/57 L 90 07/01/20 03:00 90 23 91 07/01/20 02:52 94 H 24 106/56 L 91 07/01/20 02:32 89 23 91 07/01/20 02:30 91 H 23 88 L 07/01/20 02:00 91 H 23 78 L 07/01/20 01:52 92 H 23 114/55 L 78 L 07/01/20 01:30 92 H 25 H 77 L 07/01/20 01:00 93 H 23 75 L 07/01/20 00:51 93 H 23 136/70 75 L 07/01/20 00:30 92 H 23 84 L 07/01/20 00:00 90 23 87 L 06/30/20 23:56 98.8 F 91 H 30 H 116/70 89 L 06/30/20 23:51 93 H 23 116/70 86 L 06/30/20 23:48 24 85 L 06/30/20 23:30 92 H 24 82 L Coding Diagnoses Acute hypoxemic respiratory failure J96.01 Hepatic encephalopathy K72.90 Ascites R18.8 Pleural effusion associated with hepatic disorder K76.9; J91.8 Diabetes mellitus, type 2 E11.9 COVID-19 U07.1
[2020-07-01] MEDS ORDERED: MoRPHine SULFATE 2 MG/ML CARP IV PRN (10:27)
[2020-07-01] MEDS ORDERED: GLYCOPYRROLATE 0.2 MG/ML VIAL IM PRN (10:27)
[2020-07-01] MEDS ORDERED: LORazepam 1 MG/2 ML VIAL IV PRN (10:32)
[2020-07-01] MEDS ORDERED: LORazepam 0.5 MG TAB PO PRN (10:37)
[2020-07-01] MEDS ORDERED: ATROPINE SULFATE 1% OP SOLN 2 ML BTL SL PRN (10:37)
[2020-07-01] MEDS ORDERED: ONDANSETRON 4 MG OD TAB SL PRN (10:37)
[2020-07-01] MEDS ORDERED: LORazepam 0.5 MG/1 ML VIAL IV PRN (10:37)
[2020-07-01] MEDS ORDERED: ONDANSETRON INJ 2 MG/ML 2 ML VIAL IV PRN (10:37)
--- NOTE | 2020-07-01 10:41 | Palliative Care Consultation ---
Date of Consultation July 01, 2020 Assessment & Plan (1) Palliative care encounter: This patient is a 69 year old female who presented to the [facility] from [facility] with hypoxia. She is a COVID-19 positive patient. Additional PMH includes liver and kidney failure, likely PANDYA, DM2, CAD, and depression. A paracentesis was performed. She has been given IV Albumin and rectal Lactulose. Discussion was held for her to have an NGT placed for Lactulose administration, but she does have esophageal varicies and a probable GIB, so this was not pursued. Her current Ammonia level today was 364. Given age, COVID19 infection, and multiple comorbidities, this patient is unlikely to be a liver transplant candidate. She has since become obtunded and is unresponsive on a BiPAP mask. Palliative Care was consulted to discuss goals of care with the patients family. -Discussed case with the hospitalist. -Assessment deferred due to patient being on COVID unit and specialists are not currently entering the unit. -Lengthy conversation held with the hospitalist and partner integration planner regarding poor quality of life. -The patient is obtunded on BiPAP. -Lengthy discussion held with the patients son Nicolas [phone] regarding goals of care. -Patient son has full understanding of patients condition and does support full transition to [employer]PRESENT[employer]. -All medications not comfort focused have been stopped. All blood draws and vitals will be stopped. -Comfort meds ordered, including Morphine 2 mg IV Q1 PRN. -Set expectation that once BiPAP masked removed, patient will likely pass relatively quickly, within minutes to hours. -Patients son declined an ipad video visit as his mother is not interactive. -Above plans communicated with IDT. -PPS: 10% (2) COVID-19: (3) Acute liver failure: Hepatic coma status: with hepatic coma Qualified Code(s): K72.01 - Acute and subacute hepatic failure with coma (4) Hyperammonemia: (5) Acute respiratory failure: History of Present Illness Reason for Consultation: Goals of Care Requesting Physician: Dr. Fry Attending Physician: Ricci Franz History of Present Illness This patient is a 69 year old female who presented to the [facility] from [facility] with hypoxia. She is a COVID-19 positive patient. Additional PMH includes liver and kidney failure, likely PANDYA, DM2, CAD, and depression. A paracentesis was performed. She has been given IV Albumin and rectal Lactulose. Discussion was held for her to have an NGT placed for Lactulose administration, but she does have esophageal varicies and a probable GIB, so this was not pursued. Her current Ammonia level today was 364. Given age, COVID19 infection, and multiple comorbidities, this patient is unlikely to be a liver transplant candidate. She has since become obtunded and is unresponsive on a BiPAP mask. Palliative Care was consulted to discuss goals of care with the patients family. Please see A/P for further details. Thank you for involving us with this unfortunate patient. Allergies Allergy/AdvReac Type Severity Reaction Status Date / Time cefuroxime Allergy Unknown Verified 06/30/20 18:10 amoxicillin [From Augmentin] AdvReac Vomiting Verified 06/30/20 12:59 clavulanic acid AdvReac Vomiting Verified 06/30/20 12:59 [From Augmentin] Home Medications Home Medications Medication Instructions Recorded Confirmed Type Jardiance 10 mg PO QAM 01/09/19 06/30/20 History omeprazole 20 mg PO DAILYBB 01/09/19 06/30/20 History sertraline 100 mg PO QAM 01/09/19 06/30/20 History Saccharomyces boulardii [Florastor] 250 mg PO QAM 06/19/20 06/30/20 History bupropion HCl 200 mg PO QAM 06/19/20 06/30/20 History calcium carbonate-vitamin D3 1 tab PO QAM 06/19/20 06/30/20 History ferrous sulfate 325 mg PO BID 06/19/20 06/30/20 History lactulose 20 g PO QAM 06/19/20 06/30/20 History magnesium oxide [MagOx] 400 mg PO BID 06/19/20 06/30/20 History ondansetron HCl [Zofran] 4 mg PO Q6H PRN 06/19/20 06/30/20 History pantoprazole [Protonix] 40 mg PO DAILYBB 06/19/20 06/30/20 History spironolactone 25 mg PO BID 06/19/20 06/30/20 History therapeutic multivitamin 1 tab PO QAM 06/19/20 06/30/20 History [Thera-Tabs] Patient History Medical History (Updated 07/01/20 @ 10:55 by QIANA Zamarripa) Acute hypoxemic respiratory failure Anxiety Ascites CAD (coronary artery disease) NON-OBSTRUCTIVE [facility]- Depression Diabetes mellitus, type 2 IDDM GERD (gastroesophageal reflux disease) CONTROLLED Hydronephrosis, right Hyperlipidemia Hypertension Mild aortic stenosis DAMARI 1.62CM2, MG 17MMHG PER 2017 ECHO Obesity Palliative care encounter Pleural effusion associated with hepatic disorder Urinary incontinence Surgical History Fusion of spine LUMBAR History of cardiac cath 2014= NO STENTS History of cholecystectomy History of colonoscopy History of cystoscopy History of hysterectomy History of total knee replacement RIGHT/LEFT Social History Smoking Status: Unknown if ever smoked Cigarettes Per Day: QUIT 6 YEARS AGO, HX OF SOCIAL USE; Second Hand Exposure: No; Hx Alcohol Use: No Hx Substance Use: No Preferred Language: [place]ican Communication Ability: unresponsi Denture Technician Required: No Beliefs That Will Affect Care: None Current Living Situation: Jail Feels Safe at Home: Yes Assistive Devices: None Review of Systems Review of Systems: Unobtainable due to reduced consciousness and Other (discussed with nursing and hospitalist. pt obtunded) Physical Exam Physical Exam: Deferred - pt in [facility]-19 unit. Assessment discussed with the hospitalist Results & Data ([place]) Vital Signs (Past 12 Hours) Vital Signs Temp Pulse Pulse Resp BP BP Pulse Ox 07/01/20 08:12 111 H 26 H 87 L 07/01/20 06:04 88 22 84 L 07/01/20 04:30 87 21 87 L 07/01/20 04:00 88 21 89 L 07/01/20 03:55 88 22 81/56 L 89 L 07/01/20 03:52 89 23 81/56 L 89 L 07/01/20 03:49 90 95/57 L 89 L 07/01/20 03:30 90 23 90 07/01/20 03:28 36.7 C 90 90 23 95/57 L 95/57 L 90 07/01/20 03:00 90 23 91 07/01/20 02:52 94 H 24 106/56 L 91 07/01/20 02:32 89 23 91 07/01/20 02:30 91 H 23 88 L 07/01/20 02:00 91 H 23 78 L 07/01/20 01:52 92 H 23 114/55 L 78 L 07/01/20 01:30 92 H 25 H 77 L 07/01/20 01:00 93 H 23 75 L 07/01/20 00:51 93 H 23 136/70 75 L 07/01/20 00:30 92 H 23 84 L 07/01/20 00:00 90 23 87 L 06/30/20 23:56 37.1 C 91 H 30 H 116/70 89 L 06/30/20 23:51 93 H 23 116/70 86 L 06/30/20 23:48 24 85 L 06/30/20 23:30 92 H 24 82 L PG Care Time/CCT Total # of Minutes Spent Total Time Spent with Patient: Total time spent is greater than 50% in coordination of care (as documented) at patient's floor/unit and/or counseling patient: 70 Coding Level of Care Code 51946 Inpt Consult Level 3 Diagnoses Palliative care encounter Z51.5 COVID-19 U07.1 Acute liver failure K72.01 Hepatic coma status: with hepatic coma Hyperammonemia E72.20 Acute respiratory failure J96.00 Time Spent (min) 70 Time Spent Midlevel Total time spent 70 minutes with > 50% of that time spent discussing goals of care with the patients son and collaborating wtih the IDT
--- NOTE | 2020-07-01 10:42 | Critical Care Progress Note ---
Date of Service July 01, 2020 Assessment & Plan (1) Acute hypoxemic respiratory failure: Assessment and Plan: -Acute decompensated liver failure -Acute hypoxemic respiratory failure with evidence of Covid pneumonitis -Acute kidney injury, possible hepatorenal syndrome -Massive ascites with associated hepatic hydrothorax -Coagulopathy -Altered mental status secondary to hyperammonemia and toxic encephalopathy Neurologic: Unfortunately the patient's ammonia continues to rise despite rectal lactulose. Covid encephalitis is difficult to rule out as a confounding factor. I had a lengthy discussion with the patient's son who is currently in [place], Antoine Still. I indicated the severity of the patient's illness and discuss her chronic issues. He is agreeable with proceeding towards comfort care measures only at this point. We are going to discontinue rectal lactulose at this time and focus on her comfort. It does not appear that she has any discomfort at this time likely related to her hepatic encephalopathy. Pulmonary: We will continue supplemental oxygen for comfort. Discontinue antibiotics at this time. She did have evidence of possible hepatic hydrothorax. Will not pursue thoracentesis at this time. Cardiovascular: We will hold off on echocardiogram at this time. Will not pursue central line or vasopressor support. Gastrointestinal: Does not appear that she had evidence of GI bleed. Will discontinue rectal lactulose as noted above. Continue comfort measuresonly. Renal: She has evidence of RODRIGUE. She is at risk for hepatorenal syndrome. Discontinue fluids at this time. Infectious disease: Blood cultures were positive for coag negative GPC. Likely contaminant. Discontinue antibiotics at this time. Focusing on comfort. Hematologic: Comfort measures Endocrine: TSH was within normal limits. F/E/N: N.p.o. status. Peripheral IVs in place. VTE prophylaxis: Holding anticoagulation or SCDs given comfort measures CODE STATUS: Comfort measures only Family at bedside: Patient's case was discussed with the son Antoine Still over the phone as noted above. Palliative care is also involved. Appreciate their assistance. They have placed orders for comfort care. Disposition: Remain in the Covid 19 unit. Patient is likely to pass in the next 24 to 48 hours. ICU will sign off at this time. I have personally spent 42 minutes of critical care time in the direct management of this patient. This is a life/limb threatening event. This includes time spent evaluating patient, direct bedside care, chart review, placing orders, interpretation of diagnostic studies, discussion with consultants, patient, and family members, as well as other required patient management activities. This time is exclusive of all separately billable procedures, and teaching time and separate from and in addition to any other critical care service time. Thank you for allowing us to participate in the care of this patient. (2) Hepatic encephalopathy: (3) Ascites: (4) Pleural effusion associated with hepatic disorder: (5) Diabetes mellitus, type 2: (6) COVID-19: Admission and Anticipated Discharge Date Admission Date: June 30, 2020 Subjective Patient seen and examined today. She continues to be essentially comatose. Not responding to pain or commands. She is requiring BiPAP with 100% FiO2 and saturating in the mid 80s. She is very tachypneic. Urine output has been marginal. Review of Systems Review of Systems: Unobtainable due to cognitive status Physical Exam Constitutional: Patient continues to be obtunded. She is tachypneic. No response to verbal or command or painful stimuli Eyes: Roving eye movements. ENMT: external ear and nose normal, oropharynx normal Mask and shield in place. No obvious deformities. Neck: + thick neck Respiratory: + labored breathing and + abnormal respiratory pattern Auscultation: + diminished lung sounds and + crackles Cardiovascular: RRR, no murmur, no edema Extremities: + edema Gastrointestinal (Abdomen): Inspection/Auscultation: + abdomen distended and + abdominal edema Musculoskeletal: no cyanosis or clubbing, extremities motor strength 5/5 Unable to examine due to her mental status Skin: no rashes, warm and dry Neurologic: + obtunded Psychiatric: Unable to examine due to mental status Results & Data Results & Data ([facility]) Vital Signs (Past 12 Hours) Vital Signs Temp Pulse Pulse Resp BP BP Pulse Ox 07/01/20 08:12 111 H 26 H 87 L 07/01/20 06:04 88 22 84 L 07/01/20 04:30 87 21 87 L 07/01/20 04:00 88 21 89 L 07/01/20 03:55 88 22 81/56 L 89 L 07/01/20 03:52 89 23 81/56 L 89 L 07/01/20 03:49 90 95/57 L 89 L 07/01/20 03:30 90 23 90 07/01/20 03:28 98.1 F 90 90 23 95/57 L 95/57 L 90 07/01/20 03:00 90 23 91 07/01/20 02:52 94 H 24 106/56 L 91 07/01/20 02:32 89 23 91 07/01/20 02:30 91 H 23 88 L 07/01/20 02:00 91 H 23 78 L 07/01/20 01:52 92 H 23 114/55 L 78 L 07/01/20 01:30 92 H 25 H 77 L 07/01/20 01:00 93 H 23 75 L 07/01/20 00:51 93 H 23 136/70 75 L 07/01/20 00:30 92 H 23 84 L 07/01/20 00:00 90 23 87 L 06/30/20 23:56 98.8 F 91 H 30 H 116/70 89 L 06/30/20 23:51 93 H 23 116/70 86 L 06/30/20 23:48 24 85 L 06/30/20 23:30 92 H 24 82 L Vital signs, labs and imaging reviewed Coding Level of Care Code Critical Care 1st 30-74 mins Diagnoses Acute hypoxemic respiratory failure J96.01 Hepatic encephalopathy K72.90 Ascites R18.8 Pleural effusion associated with hepatic disorder K76.9; J91.8 Diabetes mellitus, type 2 E11.9 COVID-19 U07.1 Time Spent (min) 42
[2020-07-01] MEDS ORDERED: CEFEPIME 2,000 MG in SYRINGE 0 ML IV SCH (12:00)
--- NOTE | 2020-07-01 13:10 | Death Pronouncement Note ---
Date of Service July 01, 2020 Pronouncement Note Admission Date Admission Date: June 30, 2020 Date and Time of Date of : 07/01/20 Time of : 11:00 PCOD Preliminary cause of : Acute liver failure Contributing Factors (1) Palliative care encounter: (2) COVID-19: (3) Acute liver failure: (4) Hyperammonemia: (5) Acute respiratory failure: Additional Data Confirmation of : no pulse, no respirations, no heart sounds and pupils fixed and dilated Family: contacted Attending/PCP notified?: Yes Attending physician: Ricic Franz Was code activated?: No Coding Level of Care Code None Diagnoses Palliative care encounter Z51.5 COVID-19 U07.1 Acute liver failure K72.01 Hepatic coma status: with hepatic coma Hyperammonemia E72.20 Acute respiratory failure J96.00
--- NOTE | 2020-07-01 13:10 | Discharge Summary ---
Date of Service date of admission: June 30, 2020 date of : July 01, 2020 time of : 1100 Admission HPI Per Admitting Provider The patient is a 69-year-old female who is reportedly Covid positive as of a few days ago. She is from [facility]. The patient today had a difficult time with her breathing and a change in mental status and appeared yellow in color. She seemed to have a sudden decline and was sent to the hospital via EMS. Recall admit the patient in connection with the intensive care unit team. The patient is obtunded and does not respond to pain. Patient has significant elevation of her ammonia to 300 and likely has hepatic encephalopathy but more concerning issues including acute respiratory failure with hypoxia from a diagnosis of COVID-19 reportedly diagnosed on 06/27/2020. Patient also has significant abdominal distention and is known to have liver failure with previous paracentesis in May 2020 at [facility]. Concern for SBP and sepsis on presentation additionally the patient has had very little urine output in the emergency department. Currently her vital signs have been stable without volume resuscitation or pressors. Been administered to cefepime and albumin has been ordered per intensive care unit direction. Cultures have been taken for blood and she is having a paracentesis for diagnostic and therapeutic purposes. She has been consented for convalescent plasma and will receive dexamethasone and a dditionally she will receive ascorbic acid thiamine. Since she cannot take oral medication due to her obtundation initial discussion with ICU team regarding placement of a core safe tube for lactulose was felt to be contraindicated and a lactulose enemas ordered. Principal Diagnosis hepatic encephalopathy 2nd to acute liver failure in setting of COVID-19 infection Discharge Exam at time of pronouncement of : pupils fixed & dilated; no audible heart tones; no spontaneous breathing; no pa lpable pulse; no response to pain/voice. Discharge Data Allergies Allergy/AdvReac Type Severity Reaction Status Date / Time cefuroxime Allergy Unknown Verified 06/30/20 18:10 amoxicillin [From Augmentin] AdvReac Vomiting Verified 06/30/20 12:59 clavulanic acid AdvReac Vomiting Verified 06/30/20 12:59 [From Augmentin] Consultations 06/30/20 15:38 Consult Gastroenterology Stat 06/30/20 17:21 Consult Case Management - Discharge Planning Routine Consult Bottle Selector Routine 07/01/20 09:09 Consult Palliative Care Routine Ordered Studies 06/30/20 12:06 CT head/brain wo con Stat 06/30/20 12:59 CT abd pelvis wo con Stat 06/30/20 13:39 US guide needle placement Stat Diagnostic/therapeutic paracentesis Hospital Course (1) Hepatic encephalopathy: The patient presented with grade 4 hepatic encephalopathy (fully unresponsive). This was 2nd to acute on chronic liver failure (patient with known past history of PANDYA cirrhosis) in the setting of COVID-19 infection. She was admitted to the ICU and started on lactulose enemas. She was given supportive care for her COVID-19 infection/pneumonia/acute hypoxic respiratory failure including BiPAP and convalescent plasma. Early discussions were held with her family that her prognosis was extremely poor. Renal function deteriorated (Cr 1 on admission, and Cr 1.4 on day of ) and urine output dropped off considerably. INR continued to worsen over 24 hours with INR on day of 2.2. Lactic acidosis persisted. On 07/01/20 further discussions were held with the family about goals of care and at that time a decision was made to transition to comfort care measures. Following removal of BiPAP the patient passed peacefully within minutes of such. (2) Hyperammonemia: Ammonia level 364 on day of . (3) Acute liver failure: In the setting of chronic cirrhosis 2nd to PANDYA. No prior h/o alcohol use. (4) Septicemia: In addition to COVID-19 infection the patient had + blood cultures from admission 2nd to coag negative staph. (5) COVID-19: With resulting pneumonia and acute hypoxic respiratory failure. Required BiPAP. Was not mechanically ventilated due to DNR/DNI status. (6) Pneumonia due to COVID-19 virus: (7) Cirrhosis: 2nd to PANDYA. Diagnostic paracentesis with no evidence of SBP. (8) Acute kidney failure: Either sepsis-associated ATN vs hepatorenal syndrome. (9) Elevated lactic acid level: (10) CAD (coronary artery disease): (11) Diabetes mellitus, type 2: (12) Depression: (13) Coagulopathy: INR > 2 on day of 2nd to acute liver failure in setting of PANDYA cirrhosis. Total Time Total Time Spent Total Time Spent (In Minutes): 25 Total Time Includes: Examination of the Patient and Communication With Other Providers Discharge Plan Discharge Items Patient Disposition: Coding Level of Care Code D/C Day Management <30 mins Diagnoses Hepatic encephalopathy K72.90 Hyperammonemia E72.20 Acute liver failure K72.01 Hepatic coma status: with hepatic coma Septicemia A41.9 COVID-19 U07.1 Pneumonia due to COVID-19 virus U07.1; J12.89 Cirrhosis K74.60 Acute kidney failure N17.9 Elevated lactic acid level R79.89 CAD (coronary artery disease) I25.10 Diabetes mellitus, type 2 E11.9 Depression F32.9 Coagulopathy D68.9
[2020-07-03] MEDS ORDERED: ALBUMIN 25% 50 ML IV SCH (09:00)
== END 2020-07-01 13:06 | disposition expired | DRG 871 ==
LOC: ED 11:50 → SUATTDRO 14:20 → 2E 14:20